=== PATIENT | female | born 1965 | race African-American/Black ===

== ENCOUNTER 2017-05-05 17:58 | Emergency (ER) | payer OTHER ==
[2017-05-05] MEDS ORDERED: hydrALAZINE 20 MG/ML VIAL ONE (19:27)
[2017-05-05] MEDS ORDERED: Metoclopramide HCl 10 MG/2 ML VIAL ONE (19:27)
--- NOTE | 2017-05-05 20:06 | CT ---
CT BRAIN WITHOUT CONTRAST: History: Headache. Comparison: MRI brain, 08-02-13 FINDINGS: No acute infarct or hemorrhage. No midline shift or mass effect. Ventricular size or mass effect. Ve ntricular size and extraaxial spaces are normal. Paranasal sinuses and mastoids are clear. IMPRESSION: No acute intracranial abnormality. POS: [facility]
[2017-05-05] MEDS ORDERED: Magnesium Sulfate 2 GM/NS 0.9% 50 ML BAG ONE (20:46)
[2017-05-05] MEDS ORDERED: Acetaminophen 500 MG TAB ONE (20:47)
[2017-05-05] MEDS ORDERED: diphenhydrAMINE 50 MG/ML VIAL ONE (20:47)
== END 2017-05-05 21:45 | disposition home or self-care (01) ==
LOC: SCSER 17:58
DX: R51 Headache (principal); I12.0 Hypertensive chronic kidney disease with stage 5 chronic kidney disease or end stage renal disease; E11.22 Type 2 diabetes mellitus with diabetic chronic kidney disease; N18.6 End stage renal disease; Z99.2 Dependence on renal dialysis; Z87.891 Personal history of nicotine dependence; Z79.899 Other long term (current) drug therapy
CPT/HCPCS: 70450; 85652; 96365; 96367; 96375; J0360; J1200; J2765; J3475

== ENCOUNTER 2017-05-14 16:18 | Outpatient (CLI) | payer OTHER ==
--- NOTE | 2017-05-14 16:50 | RAD ---
CHEST TWO VIEWS: 05/14/17 HISTORY: Cough. COMPARISON: 01/18/15. FINDINGS: Cardiac silhouette and pulmonary vasculature are unremarkable. Mediastinum is midline. There is no co nfluent air space consolidation, pneumothorax, or pleural fluid apparent. IMPRESSION: No active cardiopulmonary abnormalities are demonstrated. POS: [facility]
== END 2017-05-14 16:19 | disposition home or self-care (01) ==
LOC: RAD 16:18
PROVIDERS: ATTEND Family Medicine
DX: R05 Cough (principal)
CPT/HCPCS: 71046

== ENCOUNTER 2017-05-15 17:19 | Inpatient (IN) | payer OTHER ==
[2017-05-15 18:08] VITALS: BMI 32.5
[2017-05-15 18:53] LABS: Anion Gap 12 mmol/L (10-20); BUN (Urea Nitrogen) 47 mg/dL (9.8-20.1); Calc. Creatinine Clearance 21 mL/min (70-130); Calcium 8.7 mg/dL (7.8-10.44); Carbon Dioxide 28 mmol/L (22-29); Chloride 102 mmol/L (98-107); Estimated GFR-MDRD 12; Glucose 97 mg/dL (70-105); Magnesium 2.4 mg/dL (1.6-2.6); Phosphorus 3.6 mg/dL (2.3-4.7); Potassium 3.4 mmol/L (3.5-5.1); Sodium 139 mmol/L (136-145)
--- NOTE | 2017-05-15 19:46 | PDOC.FPRHP ---
- History of Present Illness Chief Complaint: increased creatinine History of Present Illness: 51 yo female with a pmhx of diabetes, type 2, htn, and hld presents as a direct admit from clinic with an increased cr level over the past 48 hours. She had a creatinine of 4.04 in clinic initially, and yesterday in the hospital when she she had her bmp rechecked, it had bumped to 4.8. Prior to checking it in clinic , her creatinine usually sits in the 3.6 range. She does endorse DUENAS, that is worsening, and some shortness of breath at night. She endorses mild lower extremity swelling. She also endorses a 7 pound weight gain over the past week. She denies congestion, fever, and n/v/d. - Allergies/Adverse Reactions Allergies Allergy/AdvReac Type Severity Reaction Status Date / Time codeine Allergy Intermediate Verified 05/15/17 18:10 - Home Medications Medication Instructions Recorded Confirmed Type Furosemide [Lasix] 20 mg PO DAILY 10/22/12 05/15/17 History Gabapentin 100 mg PO HS PRN 12/08/12 05/15/17 History Bisoprolol Fumarate/HCTZ 1 tablet PO DAILY 10/18/13 05/15/17 History - History PMHx:Type 2 diabetes, HTN, HLD, CKD, stage 5, PAD, Peripheral Neuropathy PSHx: AV fistula creation FHx: diabetes, mom-heart disease Social:former smoker (04/2016); pt has children - Review of Systems General: reports: weight/appetite/sleep changes (7 pound weight gain). denies: fever/chills Eyes: denies: eye pain, vision changes ENT: denies: nasal congestion, rhinorrhea Respiratory: reports: cough (nonproductive, dry), shortness of breath (with exertion, lying flat). denies: congestion Cardiovascular: reports: edema (bilateral lower extremities), paroxysmal nocturnal dyspnea, orthopnea. denies: chest pain, palpitation Gastrointestinal: denies: nausea, vomiting, diarrhea, constipation, abdominal pain Genitourinary: denies: incontinence, dysuria Skin: denies: rashes, lesions Musculoskeletal: denies: pain, tenderness Neurological: denies: numbness, syncope Psychological: denies: anxiety, depression - Vital signs BP: 169/79 HR: 71 RR: 18 Tmax: 98 Pox: 96% on RA Wt: 92kg - Physical Exam Constitutional: NAD, awake, alert and oriented, well developed HEENT: normocephalic and atraumatic, PERRLA, grossly normal vision, MMM Neck: supple, trachea midline, no LAD, no JVD, no thyromegaly Heart: RRR, other (trace edema bilateral lower extremities) -Heart: 2/6 systolic ejection murmur Lungs: CTAB, no respiratory distress, good air movement, no wheezing, no retractions Abdomen: soft, non-tender, bowel sounds present, no masses/distention Musculoskeletal: normal structure Neurological: no focal deficit Skin: no rash/lesions, capillary refill <2 seconds Heme/Lymphatic: no unusual bruising or bleeding, no purpura Psychiatric: normal mood and affect, good judgment and insight FMR H&P: Results - Labs Result Diagrams: 05/15/17 18:25 Lab results: Sodium 139 mmol/L (136-145) 05/15/17 18:25 Potassium 3.4 mmol/L (3.5-5.1) L 05/15/17 18:25 Chloride 102 mmol/L (98-107) 05/15/17 18:25 Carbon Dioxide 28 mmol/L (22-29) 05/15/17 18:25 BUN 47 mg/dL (9.8-20.1) H 05/15/17 18:25 Creatinine 4.58 mg/dL (0.6-1.1) H 05/15/17 18:25 Glucose 97 mg/dL (70-105) 05/15/17 18:25 Calcium 8.7 mg/dL (7.8-10.44) 05/15/17 18:25 - Radiology Interpretation Chest x-ray Status: image reviewed by me, report reviewed by me Additional comment: no acute cardiopulmonary process FMR H&P: A/P - Problem List (1) NATALIA (acute kidney injury) Current Visit: Yes Status: Acute Code(s): N17.9 - ACUTE KIDNEY FAILURE, UNSPECIFIED (2) CKD (chronic kidney disease) stage 5, GFR less than 15 ml/min Current Visit: Yes Status: Acute Code(s): N18.5 - CHRONIC KIDNEY DISEASE, STAGE 5 (3) HTN (hypertension) Current Visit: Yes Status: Acute Code(s): I10 - ESSENTIAL (PRIMARY) HYPERTENSION (4) HLD (hyperlipidemia) Current Visit: Yes Status: Acute Code(s): E78.5 - HYPERLIPIDEMIA, UNSPECIFIED (5) Diabetes type 2, controlled Current Visit: Yes Status: Acute Code(s): E11.9 - TYPE 2 DIABETES MELLITUS WITHOUT COMPLICATIONS - Plan 51 yo f with pmhx of diabetes, type 2, htn, hld presents with an increase in creatinine over the past 48 hours, admitted for NATALIA on CKD, stage 5. 1.)NATALIA on CKD, stage 5: BUN/Cr~10 which suggests an intrinsic cause; pt denies recent antibiotic or chronic nsaid use; nevertheless, we will avoid nephrotoxic drugs d/t her recent increase in creatinine. We ordered a urine creatinine and urea, since she is on lasix, to further evaluate and ordered Hep C, HIV, RPR to further assess for intrinsic kidney causes, since she has a pmhx of syphilis infection in high school, treated. We also ordered a renal ultrasound to rule out obstruction causes. There was some initial concern for volume overload, potentially CHF as a prerenal cause. We ordered an echo to further evaluate. We will monitor pt's I/O's and record daily weights. We also heard a systolic murmur on exam. She also has trace edema in her bilateral lower extremities and a 7 pound weight gain in the past week; however, her BNP was normal and chest xray was unremarkable. We will follow-up on the echo results and we will recheck a BMP in the am to assess her BUN and Cr again. We will consult her demolition expert, Dr. Roberts as well. 2.)Type 2 Diabetes: Controlled. Recent Hba1c was 6.3; we will place her on SSI and do ACHS accuchecks. 3.)HTN: controlled. We will restart her bb and hctz. 4.)HLD: controlled. We will change her to crestor, as the lipitor was causing GI upset. FMR H&P: Upper Level - Plan Date/Time: 05/15/171929 Teodora Benitez, PGY3, have evaluated this patient and agree with findings/plan as outlined by physician/internist resident. Pertinent changes/additions are listed here. This is a 51 yo AAF w/ PMH CKDIV with Dr. Roberts as demolition expert, DM2, HLD, HTN , PAD, Hx of syphillis tx in teenage years, who was sent over from clinic for NATALIA. Her Cr baseline is 3.7 and has increased to 4.8. She states that over the past week she has had a 7 pound weight gain,and has progressively noticed SOB when she walks up stairs and PND. She has had intermittent LE swelling and abdominal swelling and a dry cough which is worse at night, muscle cramps. Last ECHO was over 2 years ago. Denies any fevers,chills, congestion,N/V. PE: Gen:AOx4, in no acute distress HEENT: No PND, cervical lymphadenopathy, thyroidmegaly. CV: RRR. + 2/6 Systolic murmur. Resp: Rale RLL, otherwise CTA. No wheezing. Abdomen: Non-tender. Mildly distended. No rebound, no guarding Ext: Trace edema LE bilaterally. Pedal Pulses +2 LE bilaterally A/P: 1) NATALIA on CKD4 - Possibly due to volume overload. Will check BNP and ECHO, monitor I&O, daily weights, Lasix. We will repeat BMP, Urine Urea and Creatinine , UA, and Culture if abnormal. Avoid nephrotoxic medication. Consult Dr. Roberts in am. Renal US. 2) DM2 - patient just stopped her Januvia 1 week ago. Last HgA1c 05/2017 was 6.3. We will do Accuchecks QACHS and Mild ISS and consider adding medication depending on her BG. 3) Hx of syphilis - s/p treatment. Repeat titers to ensure still treated. Will check HIV, RPR and HepC as patient at high risk. 4) Increased weight gain - Possible CHF. F/u with BNP, ECHO. Lasix. Repeat CXR. 5) HTN - Continue home medications 6) HLD - Continue home medications Attending Addendum - Attending Addendum Date/Time: 05/15/17 [id number] I personally evaluated the patient and discussed the management with Dr. Gilman I agree with the History, Examination, Assessment and Plan documented above with any addition or exceptions noted below- Briefly this is a 51 year old female with h/o DM, HTN, PVD, HLD and CKD stage 4 who was seen in clinic yesterday for cough x 6 weeks. Also complained of weight gain and edema. Had been seen in ER 10 days previously for VELIZ which resolved but was noted to have elevated Cr above her baseline of 3.7. Patient sent for CXR and repeat labs to further evaluate symptoms. Lab returned today with Cr now = 4.8. Patient sent to hospital for further evaluation of rapid escalation of worsening renal function. PMH/PSH/Meds/ All/SH reviewed and agree with resident's documentation. PE: Afebrile VSS. Lungs- faint crackles in bases. CV- RRR, 2/6 systolic murmur Abd soft; nt/nd Exy- no edema Labs: BNP = 13; BUN/Cr= 47/4.58; U/A 1+ protein; UDS negative CXR 05/14- negative A/P: 1) NATALIA with CKD- will gently hydrate overnight and hold lasix to see if there may be a pre-renal component. Avoid nephrotoxic meds; Consult nephrology ( Dr. Roberts); renal USG c/w intrinsic renal disease 2) DM- stopped januvia; last HgBA1c= 6.3%' will monitor accuchecks and use SSI 3) HTN- continue home meds except lasix; labetolol prn
[2017-05-15] MEDS: Acetaminophen 500 MG TAB PO PRN (21:04)
[2017-05-15] MEDS: Rosuvastatin 20 MG TAB PO SCH (21:04)
[2017-05-15 21:25] LABS: Bilirubin Negative (Negative); Blood, Urine Trace (Negative); Clarity CLEAR (Clear); Glucose, Urine (Dipstick) 100 mg/dL (Negative); Leukocyte Negative (Negative); Nitrite Negative (Negative); Protein, Urine (Dipstick) 100 mg/dL (Neg-Trace); Specific Gravity, Urine 1.006 (1.002-1.036); Urobilinogen 0.2 mg/dL (0.2-1.0)
[2017-05-15 21:27] LABS: Bacteria/HPF None Seen HPF (None Seen); Hyaline Casts/LPF 0-3 HYALINE CAST LPF (0-3 Hyaline); RBC/HPF 0-3 HPF (0-3); Squamous Epithelial None Seen HPF (0-3); WBC/HPF None Seen HPF (0-3)
[2017-05-15] MEDS: Sodium Chloride 0.9% 1,000 ML IV SCH (22:05)
--- NOTE | 2017-05-15 22:13 | ULT ---
RENAL ULTRASOUND: 05/15/17 HISTORY: Acute kidney insufficiency. Right kidney measures 8.7 cm in length. Left kidney measures 8.1 cm in length. Both kidneys exhibit i ncreased cortical echogenicity consistent with medical renal disease. There is no hydronephrosis. Mul tiple small cysts are seen in the left kidney with largest measuring approximately 1.0 cm. There is mild right hydronephrosis. The bladder is distended and appears unremarkable. Bilateral uret eral jets are demonstrated. IMPRESSION: 1. Increased cortical echogenicity consistent with medical renal disease. 2. Small left renal cyst. 3. Mild right hydronephrosis. POS: [facility]
[2017-05-15 23:05] LABS: Amphetamine Not Detected (NotDetected); Barbiturates Screen Not Detected (NotDetected); Benzodiazepine Screen Not Detected (NotDetected); Cocaine Metabolite Screen Not Detected (NotDetected); Medtox Control Line Valid? VALID (VALID); Medtox Reader # READER 1; Methadone Not Detected (NotDetected); Methamphetamine Not Detected (NotDetected); Opiate Screen Not Detected (NotDetected); Oxycodone Screen Not Detected (NotDetected); Phencyclidine (PCP) Not Detected (NotDetected); THC/Cannabinoid Screen Not Detected (NotDetected); Tricyclic Screen Not Detected (NotDetected)
[2017-05-15] MEDS: guaiFENesin 200 MG TAB PO PRN (23:15)
[2017-05-15 23:30] LABS: Syphilis Antibody Index 15.45 S/CO (<1.00 Non-Reactive)
[2017-05-15 23:32] LABS: Syphilis Antibody INDETERMINATE (Nonreactive)
[2017-05-16 01:24] LABS: Creatinine, Urine 26.35 mg/dL (47-110)
[2017-05-16 02:20] LABS: Hep C IgG Ab Non-Reactive (NonReactive); Hep C Index 0.19 S/CO (0-0.79)
[2017-05-16 02:21] LABS: HIV (1/2) Antibody/Antigen Non-Reactive (NonReactive); HIV 1/2 INDEX 0.18 S/CO (<1.00)
[2017-05-16] MEDS: Sodium Chloride 0.9% 1,000 ML IV SCH (05:54)
[2017-05-16 06:03] LABS: Anion Gap 11 mmol/L (10-20); BUN (Urea Nitrogen) 41 mg/dL (9.8-20.1); Calc. Creatinine Clearance 22 mL/min (70-130); Calcium 8.5 mg/dL (7.8-10.44); Carbon Dioxide 25 mmol/L (22-29); Chloride 107 mmol/L (98-107); Estimated GFR-MDRD 13; Glucose 104 mg/dL (70-105); Potassium 3.3 mmol/L (3.5-5.1); Sodium 140 mmol/L (136-145)
[2017-05-16] MEDS ORDERED: Dextrose 50% Abboject 50 ML SYRINGE SLOW IVP PRN (06:19)
[2017-05-16] MEDS ORDERED: HumaLOG 300 UNITS/3 ML VIAL SC PRN (06:19)
[2017-05-16] MEDS ORDERED: Dextrose 5% in Water 1,000 ML IV PRN (06:19)
--- NOTE | 2017-05-16 06:29 | PDOC.FM ---
- Subjective Subjective: Pt complains of cough that began several days ago. Reports taking Guaifenesin without improvement and it developed after a viral URI earlier in the week. Drinking water and making urine. Renal US performed. - Objective Vital Signs & Weight: Vital Signs (12 hours) Temp Pulse Resp BP Pulse Ox 05/16/17 00:00 98 F 65 22 H 157/88 H 100 05/15/17 20:00 98 F 65 22 H 157/86 H 99 05/15/17 19:30 98.1 F 76 18 134/71 99 Weight Weight 92.941 kg Result Diagrams: 05/16/17 05:15 <Javier Deluna - Last Filed: 05/16/17 06:27> - Objective Vital Signs & Weight: Vital Signs (12 hours) Temp Pulse Resp BP Pulse Ox 05/16/17 07:15 97.7 F 74 16 119/69 96 05/16/17 04:10 97.9 F 74 22 H 120/71 97 05/16/17 00:00 98 F 65 22 H 157/88 H 100 Weight Weight 92.941 kg I&O: 05/15/17 05/16/17 05/17/17 06:59 06:59 06:59 Intake Total 1695 Output Total 2200 Balance -505 Result Diagrams: 05/16/17 05:15 <Charly Ruiz - Last Filed: 05/16/17 10:11> Phys Exam - Physical Examination HEENT: PERRLA, moist MMs Neck: no nodes, no JVD Respiratory: no wheezing, no rales, no rhonchi decreased breath soungs diffusely Cardiovascular: RRR 2/6 systolic murmur present mostly on T sternum 2nd ICS Gastrointestinal: soft, non-tender, no distention Musculoskeletal: no edema, pulses present Neurological: non-focal, normal sensation Lymphatic: no nodes Psychiatric: normal affect, A&O x 3 Skin: no rash, normal turgor <Javier Deluna - Last Filed: 05/16/17 06:27> Dx/Plan (1) NATALIA (acute kidney injury) Code(s): N17.9 - ACUTE KIDNEY FAILURE, UNSPECIFIED Status: Acute (2) CKD (chronic kidney disease) stage 5, GFR less than 15 ml/min Code(s): N18.5 - CHRONIC KIDNEY DISEASE, STAGE 5 Status: Chronic (3) Post-viral cough syndrome Code(s): R05 - COUGH Status: Acute (4) HLD (hyperlipidemia) Code(s): E78.5 - HYPERLIPIDEMIA, UNSPECIFIED Status: Chronic (5) Diabetes type 2, controlled Code(s): E11.9 - TYPE 2 DIABETES MELLITUS WITHOUT COMPLICATIONS Status: Chronic QualifierTitle: Diabetes mellitus moth exterminator insulin use: without moth exterminator use Diabetes mellitus complication detail: with chronic kidney disease (6) HTN (hypertension) Code(s): I10 - ESSENTIAL (PRIMARY) HYPERTENSION Status: Chronic - Plan Plan: 51 yo f with DM2, htn, hld presents with an increase in creatinine over the past 48 hours, admitted for NATALIA on CKD, stage 5. 1.)NATALIA on CKD, stage V: - Cr Slightly improved overnight 4.58--> 4.39. Urine creatinine decreased. - Hep C, HIV, RPR all negative. - Renal ultrasound shows mild R hydronephrosis which may be contributing ro overall problem. T - ECHO Pending for 7lb weight gain in 1w, mnurmur and mild LE edema - Monitor pt's I/O's and record daily weights. Will back down on fluids later today. - Consult her air twist operator, Dr. Roberts as well. 2.)Type 2 Diabetes: Controlled. Recent Hba1c was 6.3; we will place her on SSI and do ACHS accuchecks. 3.)HTN: controlled. We will restart her bb and hctz. 4.)HLD: controlled. Crestor, as the lipitor was causing GI upset. 5) Hypokalemia: 3.3, will gently replete <Javier Deluna - Last Filed: 05/16/17 06:27> Attending Addendum - Attending Addendum Date/Time: 05/16/17 1010 I personally evaluated the patient and discussed the management with Dr. Deluna. I agree with and the History, Examination, Assessment and Plan documented above with any addition or exceptions noted below. No f/c. No cp/palps. Await nephro consultation. Do not think mild hydro contributing. Extensive medical renal disease on imaging when I reviewed images personally, and hydro unimpressive. <Charly Ruiz - Last Filed: 05/16/17 10:11>
[2017-05-16] MEDS ORDERED: Furosemide 20 MG TAB PO SCH (09:00)
[2017-05-16] MEDS: Bisoprolol Fumarate/HCTZ 10 mg/6.25 mg Tablet PO SCH (09:30)
[2017-05-16] MEDS: guaiFENesin 200 MG TAB PO PRN ×3 (09:30→21:25)
[2017-05-16] MEDS ORDERED: Clopidogrel Bisulfate 75 MG TAB ONE (13:04)
[2017-05-16] MEDS: Rosuvastatin 20 MG TAB PO SCH (20:09)
[2017-05-16] MEDS: Acetaminophen 500 MG TAB PO PRN (23:46)
[2017-05-17 05:20] LABS: Anion Gap 15 mmol/L (10-20); BUN (Urea Nitrogen) 35 mg/dL (9.8-20.1); Calc. Creatinine Clearance 23 mL/min (70-130); Calcium 8.5 mg/dL (7.8-10.44); Carbon Dioxide 20 mmol/L (22-29); Chloride 107 mmol/L (98-107); Estimated GFR-MDRD 14; Glucose 118 mg/dL (70-105); Potassium 3.5 mmol/L (3.5-5.1); Sodium 138 mmol/L (136-145)
--- NOTE | 2017-05-17 06:04 | PDOC.FM ---
- Subjective Subjective: Pt states she feels well. cough improved. Dr Roberts saw pt and cleared for discharge. - Objective Vital Signs & Weight: Vital Signs (12 hours) Temp Pulse Resp BP Pulse Ox 05/16/17 21:25 98.7 F 74 18 99 05/16/17 20:00 98.7 F 74 18 150/87 H 99 Weight Weight 92.941 kg I&O: 05/15/17 05/16/17 05/17/17 06:59 06:59 06:59 Intake Total 28564 Output Total 3900 Balance 6739 Result Diagrams: 05/17/17 04:23 <Javier Deluna - Last Filed: 05/17/17 10:38> - Objective Vital Signs & Weight: Vital Signs (12 hours) Temp Pulse Resp BP Pulse Ox 05/17/17 08:00 98.1 F 59 L 16 05/17/17 07:30 98.1 F 59 L 16 144/83 H 96 Weight Weight 92.646 kg I&O: 05/16/17 05/17/17 05/18/17 06:59 06:59 06:59 Intake Total 31993 Output Total 3900 Balance 6739 Result Diagrams: 05/17/17 04:23 <Hilario Patricio - Last Filed: 05/17/17 11:49> Phys Exam - Physical Examination HEENT: PERRLA, moist MMs Neck: no nodes, no JVD Respiratory: no wheezing, no rales, no rhonchi Cardiovascular: RRR, no significant murmur, no rub Gastrointestinal: soft, non-tender, no distention Musculoskeletal: no edema, pulses present Neurological: non-focal, normal sensation Psychiatric: normal affect, A&O x 3 Skin: no rash, normal turgor <Javier Deluna - Last Filed: 05/17/17 10:38> Dx/Plan (1) NATALIA (acute kidney injury) Code(s): N17.9 - ACUTE KIDNEY FAILURE, UNSPECIFIED Status: Acute (2) CKD (chronic kidney disease) stage 5, GFR less than 15 ml/min Code(s): N18.5 - CHRONIC KIDNEY DISEASE, STAGE 5 Status: Chronic (3) Post-viral cough syndrome Code(s): R05 - COUGH Status: Acute (4) HLD (hyperlipidemia) Code(s): E78.5 - HYPERLIPIDEMIA, UNSPECIFIED Status: Chronic (5) Diabetes type 2, controlled Code(s): E11.9 - TYPE 2 DIABETES MELLITUS WITHOUT COMPLICATIONS Status: Chronic QualifierTitle: Diabetes mellitus kapok machine operator insulin use: without kapok machine operator use Diabetes mellitus complication detail: with chronic kidney disease (6) HTN (hypertension) Code(s): I10 - ESSENTIAL (PRIMARY) HYPERTENSION Status: Chronic - Plan Plan: 51 yo f with CKD5 presents with an increase in creatinine over the past 48 hours , admitted for NATALIA on CKD. 1.)NATALIA on CKD, stage V: Dr Roberts evaluated patient and cleared for discharge with f/u in 2-3 weeks. - Cr improving 4.58--> 4.39-->4.1. Urine creatinine decreased. - Hep C, HIV, RPR all negative. - Renal ultrasound shows medical renal disease b/l- EHO shows EF 45%. 2.)Type 2 Diabetes: Controlled. Recent Hba1c was 6.3; we will place her on SSI and do ACHS accuchecks. Recently stopped Januvia. consider alt meds upon f/u 3.)HTN: controlled. continue bb and hctz. 4.)HLD: Crestor, as the lipitor was causing GI upset. 5) Hypokalemia: resolved. replete as needed 6) Cough: Likely post viral, but has reportedly been present for 6w. CXR negative. Rosanna KOCH <Javier Deluna - Last Filed: 05/17/17 10:38> Attending Addendum - Attending Addendum Date/Time: 05/17/17 2116 I personally evaluated the patient and discussed the management with Dr. Deluna I agree with the History, Examination, Assessment and Plan documented above with any addition or exceptions noted below. <Hilario Patricio - Last Filed: 05/17/17 11:49>
[2017-05-17] MEDS ORDERED: Benzonatate 100 MG CAP PO PRN (06:09)
[2017-05-17] MEDS: Bisoprolol Fumarate/HCTZ 10 mg/6.25 mg Tablet PO SCH (08:17)
[2017-05-17 08:39] VITALS: BP 144/83; TEMP 98.1
--- NOTE | 2017-05-17 13:58 | DIS-2 ---
DATE OF ADMISSION: 05/15/2017 DATE OF DISCHARGE: 05/17/2017 RESIDENT: Javier Deluna D.O. ADMITTING ATTENDING: Dr. Joelle Campa. DISCHARGE ATTENDING: Dr. Hilario Patricio. CONSULTATIONS: This will be Dr. Roberts, Nephrology. PROCEDURES: None. ADMISSION DIAGNOSIS: Acute kidney on chronic kidney injury. SECONDARY DIAGNOSES: Hypertension; hyperlipidemia; diabetes, type 2; post-viral cough syndrome. DISCHARGE MEDICATIONS: Rosuvastatin 20 mg p.o. nightly and Lasix 40 mg p.o. daily. HOSPITAL COURSE: The patient was seen in clinic earlier in the week and found to have an elevated cr eatinine of 4.8 when her baseline is 3.6. She was admitted to the hospital for acute kidney injury a nd Nephrology consultation. She does have stage 5 chronic kidney disease. Her renal function did im prove with the most recent creatinine of 4.1. Dr. Roberts did see the patient and is aware of her pro gressing kidney disease. He has arranged followup in 2-3 weeks at his outpatient clinic, but no dial ysis or dialysis access at this time. Reportedly, if her renal function decreases another 5%, she wi ll be a candidate for renal transplant through Dr. Roberts. She also suffered from a cough during her hospital stay with a negative x-ray. She will follow up with Dr. Hernandez at [facility] and follow up with Dr. Roberts, Nephrology. DISPOSITION: Stable. DISCHARGE INSTRUCTIONS: 1. Location: Home. 2. Diet: Renal. 3. Activity: As tolerated. 4. Followup: As mentioned above.
== END 2017-05-17 11:41 | disposition home or self-care (01) | DRG 683 ==
LOC: T4-B 17:19
PROVIDERS: ADMIT Family Medicine; ATTEND Family Medicine
DX: N17.9 Acute kidney failure, unspecified (principal); I12.0 Hypertensive chronic kidney disease with stage 5 chronic kidney disease or end stage renal disease; E11.22 Type 2 diabetes mellitus with diabetic chronic kidney disease; N18.5 Chronic kidney disease, stage 5; E78.5 Hyperlipidemia, unspecified; Z87.891 Personal history of nicotine dependence; J44.9 Chronic obstructive pulmonary disease, unspecified; K21.9 Gastro-esophageal reflux disease without esophagitis; M10.9 Gout, unspecified; R05 Cough; E87.6 Hypokalemia
CPT/HCPCS: 36415; 36416; 76770; 80048; 80306; 81001; 82570; 83735; 84100; 84540; 86593; 86780; 86803; 87389; 93306; A4216

== ENCOUNTER 2017-07-11 10:21 | Observation (INO) | payer OTHER ==
[2017-07-11 11:29] LABS: ALT (SGPT) 19 U/L (8-55); AST (SGOT) 15 U/L (5-34); Albumin 4.1 g/dL (3.5-5.0); Alkaline Phosphatase 109 U/L (40-150); Anion Gap 13 mmol/L (10-20); BUN (Urea Nitrogen) 54 mg/dL (9.8-20.1); Bilirubin, Total 0.3 mg/dL (0.2-1.2); Calc. Creatinine Clearance 0 mL/min (70-130); Calcium 9.2 mg/dL (7.8-10.44); Carbon Dioxide 24 mmol/L (22-29); Chloride 105 mmol/L (98-107); Estimated GFR-MDRD 10; Glucose 169 mg/dL (70-105); Potassium 3.4 mmol/L (3.5-5.1); Protein, Total 8.1 g/dL (6.0-8.3); Sodium 139 mmol/L (136-145)
[2017-07-11 11:34] LABS: CKMB 1.6 ng/mL (0-6.6); Troponin I Less than 0.010 ng/mL (< 0.028)
--- NOTE | 2017-07-11 11:39 | RAD ---
PORTABLE CHEST: HISTORY: Chest pain. COMPARISON: 10/11/15 study. FINDINGS: Heart size and mediastinum are within normal limits. The lungs are clear of infiltrates. No signifi cant bony findings. IMPRESSION: No active intrathoracic disease. POS: [facility]
[2017-07-11 12:20] LABS: #Basophils 0.1 thou/uL (0.0-0.2); #Eosinphils 0.4 thou/uL (0.0-0.7); #Lymphocytes 2.1 thou/uL (1.20-3.40); #Monocytes 0.4 thou/uL (0.11-0.59); #Neutrophils 5.7 thou/uL (1.40-6.50); %Eosinophils 4.9 % (0.0-10.0); %Lymphocytes 24.2 % (21.0-51.0); %Monocytes 4.5 % (0.0-10.0); %Neutrophils 65.4 % (42.0-75.0); Hemoglobin 13.3 g/dL (12.0-16.0); Mean Corpuscular HGB CONC 33.3 g/dL (32.0-36.0); Mean Corpuscular Hemoglobin 27.3 pg (27.0-31.0); Mean Corpuscular Volume 82.1 fl (81.0-99.0); Mean Platelet Volume 9.9 fL (7.4-10.4); Platelet Count 216 thou/uL (130-400); RBC Distribution Width 13.9 % (11.5-14.5); Red Blood Cell (RBC) Count 4.86 mill/uL (4.20-5.40); White Blood Cell (WBC) Count 8.7 thou/uL (4.8-10.8)
[2017-07-11 12:36] LABS: Lipase 121 U/L (8-78)
[2017-07-11 12:37] LABS: CK (CPK) 302 U/L (29-168)
--- NOTE | 2017-07-11 12:56 | PDOC.FPRHP ---
- History of Present Illness Chief Complaint: Chest Pain History of Present Illness: 51 yo female presents with 1 week history of intermittent chest pain. She notes that her pains have been occurring for a longer period of time than that, but over the last week it has increased in frequency and severity. She states the pain is in the right side of her chest and moves to her right arm and right jaw. She states she is always nauseas and so she can't determine if it is worse at this time or not. She denies vision changes, sweating episodes, fever, or chills. She states the pain can occur at rest and when she is exerting herself ( usually walking). She states the pain usually goes away on its own, but other the last week it has lasted longer and longer and has come back more frequently. She has a lot of concern over her CKD stage 5 and doesn't want that to get any worse. She has no other complaints today. ED Course: 324 mg ASA - Allergies/Adverse Reactions Allergies Allergy/AdvReac Type Severity Reaction Status Date / Time codeine Allergy Intermediate Verified 05/15/17 18:10 - Home Medications Medication Instructions Recorded Confirmed Type Furosemide [Lasix] 20 mg PO DAILY 10/22/12 07/11/17 History Gabapentin 300 mg PO DAILY PRN 12/08/12 07/11/17 History Bisoprolol Fumarate/HCTZ 1 tablet PO DAILY 10/18/13 07/11/17 History Rosuvastatin [Crestor] 20 mg PO HS #30 tab 05/17/17 07/11/17 Rx sitaGLIPtin Phosphate [Januvia] 25 mg PO DAILY 07/11/17 07/11/17 History - History PMHx: CKD Stage 5, DM2, HLD, HTN, PAD, CAD PSHx: , Left arm shunt non-functional FHx: Mother and Maternal Grandmother heart disease Social: Patient denies drug or alcohol use. She is a former smker, but quit 5 years ago. - Review of Systems General: denies: fever/chills ENT: denies: nasal congestion, rhinorrhea Respiratory: denies: cough, congestion, shortness of breath Cardiovascular: reports: chest pain. denies: palpitation, edema Gastrointestinal: reports: nausea. denies: vomiting, diarrhea, constipation Genitourinary: denies: incontinence Skin: denies: rashes, lesions Musculoskeletal: denies: pain, tenderness Neurological: denies: numbness, syncope Psychological: denies: anxiety, depression - Vital signs BP: 11/82 HR: 65 RR: 16 Tmax: 98.1 Pox: 94% on RmAir Wt: 92 kg - Physical Exam Constitutional: NAD, awake, alert and oriented HEENT: normocephalic and atraumatic, grossly normal vision, grossly normal hearing, normal nasal mucosa Neck: supple, trachea midline Chest: no-tender to palpation Heart: RRR, normal S1/S2, no murmurs/rubs/gallops, pulses present, no edema Lungs: CTAB Abdomen: soft, non-tender, bowel sounds present, no masses/distention Musculoskeletal: normal structure, normal tone Neurological: no focal deficit, CN II-XII intact Skin: no rash/lesions, good turgor Heme/Lymphatic: no unusual bruising or bleeding Psychiatric: normal mood and affect, good judgment and insight, intact recent and remote memory FMR H&P: Results - Labs Result Diagrams: 07/11/17 10:56 07/11/17 10:56 Lab results: WBC 8.7 thou/uL (4.8-10.8) 07/11/17 10:56 Hgb 13.3 g/dL (12.0-16.0) 07/11/17 10:56 Hct 39.9 % (36.0-47.0) 07/11/17 10:56 MCV 82.1 fl (81.0-99.0) 07/11/17 10:56 Plt Count 216 thou/uL (130-400) 07/11/17 10:56 Neutrophils % 65.4 % (42.0-75.0) 07/11/17 10:56 Sodium 139 mmol/L (136-145) 07/11/17 10:56 Potassium 3.4 mmol/L (3.5-5.1) L 07/11/17 10:56 Chloride 105 mmol/L (98-107) 07/11/17 10:56 Carbon Dioxide 24 mmol/L (22-29) 07/11/17 10:56 BUN 54 mg/dL (9.8-20.1) H 07/11/17 10:56 Creatinine 5.63 mg/dL (0.6-1.1) H 07/11/17 10:56 Glucose 169 mg/dL (70-105) H 07/11/17 10:56 Calcium 9.2 mg/dL (7.8-10.44) 07/11/17 10:56 Total Bilirubin 0.3 mg/dL (0.2-1.2) 07/11/17 10:56 AST 15 U/L (5-34) 07/11/17 10:56 ALT 19 U/L (8-55) 07/11/17 10:56 Alkaline Phosphatase 109 U/L (40-150) 07/11/17 10:56 Creatine Kinase 302 U/L (29-168) H 07/11/17 10:56 CK-MB (CK-2) 1.6 ng/mL (0-6.6) 07/11/17 10:56 B-Natriuretic Peptide 19.0 pg/mL (0-100) 07/11/17 10:56 Serum Total Protein 8.1 g/dL (6.0-8.3) 07/11/17 10:56 Albumin 4.1 g/dL (3.5-5.0) 07/11/17 10:56 Lipase 121 U/L (8-78) H 07/11/17 10:56 - EKG Interpretation EK lead EKG shows normal sinus rhythm, Rate (beats per minute): 67, No other findings, NV interval [address] inversion V3-V6. - Radiology Interpretation Chest x-ray Status: report reviewed by me (No active intrathoracic disease) FMR H&P: A/P - Problem List (1) Unstable angina Current Visit: Yes Status: Acute (2) CKD (chronic kidney disease) stage 5, GFR less than 15 ml/min Current Visit: No Status: Chronic Code(s): N18.5 - CHRONIC KIDNEY DISEASE, STAGE 5 (3) Diabetes type 2, controlled Current Visit: No Status: Chronic Code(s): E11.9 - TYPE 2 DIABETES MELLITUS WITHOUT COMPLICATIONS Qualifiers: Diabetes mellitus local intermodal truck driver insulin use: without local intermodal truck driver use Diabetes mellitus complication detail: with chronic kidney disease (4) HLD (hyperlipidemia) Current Visit: No Status: Chronic Code(s): E78.5 - HYPERLIPIDEMIA, UNSPECIFIED (5) HTN (hypertension) Current Visit: No Status: Chronic Code(s): I10 - ESSENTIAL (PRIMARY) HYPERTENSION (6) Elevated CK Current Visit: Yes Status: Acute - Plan 1) Unstable angina: - Will start on therapeutic Heparin because of CKD - repeat EKG this afternoon - Trend troponins - HEART score = 6, - LOKESH risk score = 2-3. - Lipids elevated at PCP office earlier in spring. Will increase regimen - Continue aspirin - Hold BB tonight for likely stress test. 2) HTN: - Hold BB for stress test tomorrow - PRN BP control - monitor 3) DM2: - Accuchecks, SSI. - Will determine if patient is still on Januvia 4) PVD: - Continue aspirin - Increase Statin dose 5) CKD, stage 5 - IVF below maintenance - Monitor with BMP 6) Elevated CK - Trend - IVF CODE STATUS: FULL CODE Disposition: Stable, Will admit to Telemetry services and await stress results. FMR H&P: Upper Level - Pertinent history 51 yo F with PMH of DM2, HTN, CKDsIV, PVD presenting with chest pain. Pain is R sided in nature, with radiation to R jaw and down R arm. Has 10-20 min episodes of chest pressure that sometimes occur at rest and frequently also return with activity. HEART score = 6, LOKESH risk score = 2-3. Denies any SOB, dizziness, N/V with these episodes. Had negative stress test in 2014. ECHO in showed EF 45-50%, mildly depressed function overall. Family history notable for mother and maternal grandmother with heart disease. - Pertinent findings PE: T: 98.9 P: 67 BP: 141/88 RR: 17 96% Gen: [place] obese female in NAD HEENT: PERRL, EOMI, MMM, no lymphadenopathy or thyromegaly CV: RRR no murmurs, distal pulses intact Pulm: CTAB, no wheezes or rhonchi Abd: soft, NT/ND, BS present, no masses or distention Ext: no cyanosis or edema MSK: RODRIGUEZ well, no joint or muscle pain or swelling Neuro: CN 2-12 intact, normal sensation Psych: A&O x3, appropriate in conversation - Plan Date/Time: 07/11/17 1255 51 yo F here with chest pain 1) Unstable angina: Will admit to telemetry. Start on therapeutic lovenox, repeat EKG later this afternoon with next set of enzymes. Continue to trend cardiac enzymes. HEART score = 6, LOKESH risk score = 2-3. Lipids were within normal limits earlier this month at PCP's office. Continue ASA, statin. Hold BB tonight for likely stress test. 2) HTN: Continue BB, HCTZ. 3) DM2: Accuchecks, SSI. Unclear if she is still taking anything for this at home. 4) PVD: Continue ASA. I, [Portillo Barrrea], have evaluated this patient and agree with findings/plan as outlined by corporate strategy intern resident. Pertinent changes/additions are listed here. Attending Addendum - Attending Addendum Date/Time: 07/11/17 [id number] I personally evaluated the patient and discussed the management with Dr. Maharaj. I agree with the History, Examination, Assessment and Plan documented above with any addition or exceptions noted below. 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 Reports that during this time it has increased in intensity and has become more frequent. Describes the pain as R sided with radiation to jaw and R arm. Associated with nausea. Reports mostly onset at rest but sometimes with exertion. She does report chronic and worsening dyspnea with exertion. Her initial cardiac enzymes are negative, but her EKG is suggestive of some lateral ischemia. Creatinine is stable but shows estimated GFR of 10. Due to concern for suspected unstable angina, she will be started on therapeutic heparin, Nitro, ASA, O2 and morphine as needed for chest pain/ shortness of breath. Stress testing has been ordered, but Cardiology has also been consulted and will await their recommendations. Monitor on telemetry. If decision is made for heart cath, patient will need nephrology on board as the contrast load will likely push her towards need for renal replacement therapy. Mild IV fluids to help improve her creatinine somewhat.
[2017-07-11] MEDS ORDERED: Acetaminophen 325 MG TAB PO PRN ×2 (13:54→15:23)
[2017-07-11 14:17] VITALS: BMI 33.2
[2017-07-11 14:20] LABS: Troponin I Less than 0.010 ng/mL (< 0.028)
[2017-07-11] MEDS ORDERED: Gabapentin 100 MG CAP PO PRN (14:36)
[2017-07-11] MEDS ORDERED: Dextrose 5% in Water 1,000 ML IV PRN (15:23)
[2017-07-11] MEDS ORDERED: Nitroglycerin 0.4 MG TAB (25 Tab Bottle) PO PRN (15:23)
[2017-07-11] MEDS ORDERED: Heparin 25,000 units/D5W 500 ML IVPB SCH (15:23)
[2017-07-11] MEDS ORDERED: Insulin Regular 300 UNITS/3 ML VIAL SC PRN (15:23)
[2017-07-11] MEDS ORDERED: Dextrose 50% Abboject 50 ML SYRINGE SLOW IVP PRN (15:23)
[2017-07-11] MEDS ORDERED: hydrALAZINE 20 MG/ML VIAL SLOW IVP PRN (15:23)
[2017-07-11] MEDS ORDERED: Ondansetron ODT 4 MG TAB PO PRN (15:23)
[2017-07-11] MEDS ORDERED: Heparin 10,000 UNITS/ 10 ML VIAL SLOW IVP SCH (15:23)
[2017-07-11 15:56] LABS: Hemoglobin 12.9 g/dL (12.0-16.0); Platelet Count 218 thou/uL (130-400)
[2017-07-11] MEDS: Sodium Chloride 0.9% 1,000 ML IV SCH (17:55)
[2017-07-11 18:19] LABS: Troponin I Less than 0.010 ng/mL (< 0.028)
--- NOTE | 2017-07-11 19:16 | CON ---
DATE OF CONSULTATION: 07/11/2017 REASON FOR CONSULTATION: Chest pain. HISTORY OF PRESENT ILLNESS: Ms. Haider is a 51-year-old woman with history of diabetes and peripher al vascular disease and stage 5 renal failure, admitted with chest pain. Ms. Haider previously has been seen in the office by Dr. Champagne. She has undergone stress testing in evaluation of peripheral vascular disease. The patient studies will be outlined as below. She w as admitted to the hospital this occasion with central substernal pain and pain in the right side of her chest, going up into the right side of her jaw and neck, somewhat in the right arm. She is pain free currently. The pain is not exertional. PAST MEDICAL HISTORY: 1. Hypertension. 2. Renal insufficiency. She had renal failure after the delivery of her last child, the kidneys rec overed, but then they have been gradually getting worse in terms of the renal function. 3. Diabetes for several years. 4. Hypercholesterolemia. MEDICATIONS: Prior to admission: 1. Furosemide 20 mg a day. 2. Bisoprolol/HCT 10/6.25 a day. 3. Rosuvastatin 20 mg a day. 4. Januvia. REVIEW OF SYSTEMS: Constitutional: No significant weight gain or loss. Vision: No changes. Heari ng: No changes. Pulmonary: No cough or wheezing. Gastrointestinal: No nausea, vomiting, diarrhea . Skin: No rashes. Neurologic: No unilateral weakness or numbness. Psychiatric: No unusual depr ession or anxiety. Hematologic: No unusual bruising. Genitourinary: No burning with urination. ALLERGIES: CODEINE. PHYSICAL EXAMINATION: GENERAL: This is a pleasant woman in no distress. VITAL SIGNS: Blood pressure is 134/76, pulse 66 regular. HEENT: Sclerae nonicteric. Mouth mucous membranes moist. NECK: Supple, no lymphadenopathy. LUNGS: Clear, no wheezing, rales or rhonchi. CARDIAC: Normal S1, normal S2. There is no murmur, rub or gallop. ABDOMEN: Obese, nontender, no hepatosplenomegaly. EXTREMITIES: Warm, dry, no clubbing, cyanosis or edema. Peripheral pulses are diminished. I do fee l a femoral pulse on the left. She has a diminished, but palpable femoral pulse on the right. I do not feel pedal pulses. PERTINENT LABORATORY AND X-RAY FINDINGS: Troponin levels are negative. Creatinine 5.6. The estimat ed GFR is 10. Potassium is 3.4. Troponins negative. EKG sinus rhythm, probable left ventricular hypertrophy with repolarization changes. ASSESSMENT: 1. Chest pain, somewhat atypical for angina. 2. Peripheral vascular disease. 3. Hypertension. 4. Diabetes. 5. Hypercholesterolemia. Reviewing records in the office, Dr. Champagne did stress testing in 2014, which showed no ischemia. Echocardiogram revealed ejection fraction at that time 50%-55% and she had distal peripheral vascular disease. She said she had an arteriogram done indeed I does not have located that. Dr. Carreon [facility] She had balloon angioplasty with drug-coated balloon, the right common iliac and external iliac. PLAN: 1. Stress testing to be done. 2. Has developed recurrent claudication. We will need further evaluation. Dr. Carreon did do a ball oon dilatation of the peripheral vessels as outlined above in 11/2014.
[2017-07-11] MEDS ORDERED: Rosuvastatin 20 MG TAB PO SCH (21:00)
[2017-07-11] MEDS ORDERED: Atorvastatin Calcium 40 MG TAB PO SCH (21:00)
[2017-07-11] MEDS ORDERED: Heparin 5,000 UNITS/ML VIAL SC SCH (21:00)
[2017-07-11] MEDS ORDERED: Rosuvastatin 10 MG TAB PO SCH (21:00)
[2017-07-11] MEDS ORDERED: diphenhydrAMINE 25 MG CAP PO PRN (21:07)
[2017-07-12] MEDS: Sodium Chloride 0.9% 1,000 ML IV SCH ×2 (04:26→14:19)
--- NOTE | 2017-07-12 06:28 | PDOC.FM ---
- Subjective Subjective: Patient had a good night. She states chest pain resolved. She is willing and ready to have her Stress this morning. She states that she hasn't had any n/v/d , fevers, chills, or coughs. She is still concerned on her kidney function and that will be something to be followed as an outpatient. No other complaints this morning. - Objective Vital Signs & Weight: Vital Signs (12 hours) Temp Pulse Resp BP Pulse Ox 07/12/17 04:00 97.6 F 71 18 116/58 L 93 L 07/11/17 20:00 98.1 F 70 20 137/82 96 Weight Weight 93.349 kg I&O: 07/10/17 07/11/17 07/12/17 06:59 06:59 06:59 Intake Total 2058 Output Total 400 Balance 1658 Result Diagrams: 07/11/17 15:33 07/12/17 06:04 <Brijesh Maharaj - Last Filed: 07/12/17 07:38> - Objective Vital Signs & Weight: Vital Signs (12 hours) Temp Pulse Resp BP BP Pulse Ox 07/12/17 08:05 97.8 F 68 12 07/12/17 07:30 97.8 F 68 12 126/82 96 07/12/17 04:00 97.6 F 71 18 116/58 L 93 L Weight Weight 93.349 kg I&O: 07/11/17 07/12/17 07/13/17 06:59 06:59 06:59 Intake Total 2058 Output Total 400 Balance 1658 Result Diagrams: 07/11/17 15:33 07/12/17 06:04 <Micha Car - Last Filed: 07/12/17 10:31> Phys Exam - Physical Examination HEENT: moist MMs Neck: no nodes Respiratory: no wheezing, clear to auscultation bilateral Cardiovascular: RRR, no significant murmur Gastrointestinal: soft, non-tender, no distention, positive bowel sounds Musculoskeletal: no edema, pulses present Neurological: non-focal, normal sensation, moves all 4 limbs Lymphatic: no nodes Psychiatric: normal affect, A&O x 3 Skin: no rash <Brijesh Maharaj - Last Filed: 07/12/17 07:38> Dx/Plan (1) Unstable angina Status: Acute (2) CKD (chronic kidney disease) stage 5, GFR less than 15 ml/min Code(s): N18.5 - CHRONIC KIDNEY DISEASE, STAGE 5 Status: Chronic (3) Diabetes type 2, controlled Code(s): E11.9 - TYPE 2 DIABETES MELLITUS WITHOUT COMPLICATIONS Status: Chronic QualifierTitle: Diabetes mellitus intermediate accountant insulin use: without intermediate accountant use Diabetes mellitus complication detail: with chronic kidney disease (4) HLD (hyperlipidemia) Code(s): E78.5 - HYPERLIPIDEMIA, UNSPECIFIED Status: Chronic (5) HTN (hypertension) Code(s): I10 - ESSENTIAL (PRIMARY) HYPERTENSION Status: Chronic (6) Elevated CK Status: Acute - Plan Plan: 1) Unstable angina: - Will start on therapeutic Heparin because of CKD - Stress test this AM - Troponins negative x3 - HEART score = 6, - LOKESH risk score = 2-3. - Renally dosed statin. - Continue aspirin 2) HTN: - at Goal - PRN BP control - monitor 3) DM2: - Accuchecks, SSI. - Continue Januvia 4) PVD: - Continue aspirin - Renally dosed statin 5) CKD, stage 5 - IVF below maintenance - At baseline 6) Elevated CK - Decreased to 250 this AM - IVF CODE STATUS: FULL CODE Disposition: Stable, Will await stress results. <Brijesh Maharaj - Last Filed: 07/12/17 07:38> (1) Unstable angina Status: Acute (2) CKD (chronic kidney disease) stage 5, GFR less than 15 ml/min Code(s): N18.5 - CHRONIC KIDNEY DISEASE, STAGE 5 Status: Chronic (3) Diabetes type 2, controlled Code(s): E11.9 - TYPE 2 DIABETES MELLITUS WITHOUT COMPLICATIONS Status: Chronic Qualifiers: Diabetes mellitus intermediate accountant insulin use: without intermediate accountant use Diabetes mellitus complication detail: with chronic kidney disease (4) HLD (hyperlipidemia) Code(s): E78.5 - HYPERLIPIDEMIA, UNSPECIFIED Status: Chronic (5) HTN (hypertension) Code(s): I10 - ESSENTIAL (PRIMARY) HYPERTENSION Status: Chronic (6) Elevated CK Status: Acute <Micha Car - Last Filed: 07/12/17 10:31> Attending Addendum - Attending Addendum Date/Time: 07/12/17 1030 I personally evaluated the patient and discussed the management with Dr. Maharaj. I agree with the History, Examination, Assessment and Plan documented above with any addition or exceptions noted below. Patient seen by cardiology yesterday and therapeutic heparin stopped as low concern for unstable angina. Stress testing ordered for today which is currently in progress. Further mgmt depending on results of stress test and further cardiology recs. <Micha Car - Last Filed: 07/12/17 10:31>
[2017-07-12 06:42] LABS: Anion Gap 12 mmol/L (10-20); BUN (Urea Nitrogen) 52 mg/dL (9.8-20.1); CK (CPK) 250 U/L (29-168); Calc. Creatinine Clearance 19 mL/min (70-130); Calcium 8.7 mg/dL (7.8-10.44); Carbon Dioxide 21 mmol/L (22-29); Chloride 109 mmol/L (98-107); Estimated GFR-MDRD 11; Glucose 112 mg/dL (70-105); Potassium 3.7 mmol/L (3.5-5.1); Sodium 138 mmol/L (136-145)
[2017-07-12] MEDS ORDERED: ADENOSINE 60 MG/20 ML VIAL ONE (06:45)
[2017-07-12] MEDS ORDERED: Aspirin 325 MG TAB PO SCH (09:00)
[2017-07-12] MEDS ORDERED: Heparin 5,000 UNITS/ML VIAL SC SCH (09:00)
[2017-07-12] MEDS ORDERED: sitaGLIPtin Phosphate 25 MG TAB PO SCH (09:00)
[2017-07-12] MEDS ORDERED: Furosemide 20 MG TAB PO SCH (09:00)
[2017-07-12] MEDS ORDERED: Alogliptin 6.25 MG TAB PO SCH (09:00)
--- NOTE | 2017-07-12 11:50 | NM ---
NUCLEAR MEDICINE CARDIAC STRESS WITH ER AND WALL MOTION: HISTORY: Chest pain. COMPARISON: None. TECHNIQUE: Two-day protocol was utilized. The patient was administered 27 mCi of Technetium 99m sestamibi for r est imaging and 32 mCi of Technetium 99m sestamibi for stress imaging. Cardiac gating is performed. FINDINGS: On the attenuated correction and nonattenuated correction images, there is homogeneous distribution o f the radiotracer. No fixed defect or reversibility. End-diastolic volume is 97 mL. End-systolic volume is 52 mL. CARDIAC GATING: Global hypokinesis with ejection fraction is 46%. IMPRESSION: 1. No reversibility. No fixed defect. 2. Global hypokinesis with ejection fraction is 46%. POS: RADHA
[2017-07-12 12:10] VITALS: BP 143/76; TEMP 98
[2017-07-12] MEDS ORDERED: Bisoprolol Fumarate 5 MG TAB PO SCH (14:15)
--- NOTE | 2017-07-12 16:04 | PRG ---
DATE OF SERVICE: 07/12/2017 SUBJECTIVE: Ms. Haider is doing well today, no complaints, no chest pain. PHYSICAL EXAMINATION: VITAL SIGNS: Blood pressure 143/76, pulse 64 regular. LUNGS: Clear. CARDIAC: Normal S1 and normal S2. Stress test revealed an ejection fraction estimated at 46%, but n o ischemia. ASSESSMENT: 1. Stage 5 renal failure. The patient wishes to stay off dialysis as long as possible. Her creatin ine improved from 5.6-5.0 yesterday with intravenous fluid. 2. Chest pain, atypical for angina. 3. Negative cardiac enzymes. 4. Stress test negative for ischemia. PLAN: 1. She is to have an echocardiogram. 2. Aspirin 81 mg daily. 3. Statin. 4. She also has peripheral vascular disease. She is symptomatic from that. She has previously had intervention by Dr. Carreon, apparently CO2 was used as the contrast. It is explained to the patient that if she has contrast, she will almost certainly need dialysis within the next day or two followin g that. She wishes to hold off on dialysis until absolutely essential. She is to follow up with Dr. Champagne, who she has been seen in the office. I would take her off the furosemide, which she was on at home and resume the bisoprolol.
[2017-07-13] MEDS ORDERED: Bisoprolol Fumarate 5 MG TAB PO SCH (09:00)
--- NOTE | 2017-07-14 01:37 | DIS-2 ---
DATE OF ADMISSION: 07/12/2017 DATE OF DISCHARGE: 07/12/2017. PRIMARY CARE PHYSICIAN: Dr. Maharaj ADMITTING ATTENDING: Dr. Car. DISCHARGE ATTENDING: Dr. Car. CONSULTATIONS: Dr. Puri, Cardiology. PROCEDURES: The patient underwent a chest x-ray on 07/11/2017 that showed no active intrathoracic disease. The patient also underwent nuclear stress test on 07/11/2017 that showed no reversibility, no fixed defect global hypokinesis with ejection fraction of 46%. The patient underwent an echocardiogram on 07/12/2017 that showed left ventricle size mildly increased. Ejection fraction is visually estimated at 50% -55%. Moderate concentric left ventricular hypertrophy. Structurally normal mitral valve. No evidence of mitral regurgitation. Structurally normal aortic valve with no significant stenosis or regurgitation. Mild tricuspid regurgitation. PRIMARY DIAGNOSES: 1. Angina. 2. Stage 5 chronic kidney disease. 3. Type 2 diabetes. 4. Hyperlipidemia. 5. Hypertension. 6. Elevated CK. DISCHARGE MEDICATIONS: 1. Gabapentin 300 mg p.o. daily. 2. Bisoprolol/hydrochlorothiazide 10 mg/6.25 mg 1 tablet p.o. daily. 3. Rosuvastatin 10 mg p.o. daily. 4. Januvia 25 mg p.o. daily. DISCONTINUED MEDICATIONS: 1. Furosemide 20 mg p.o. daily. 2. Rosuvastatin 20 mg p.o. at bedtime. HISTORY OF PRESENT ILLNESS AND HOSPITAL COURSE: This is a 51-year-old female who presents with 1-week history of intermittent chest pain. She notes that her pains have been occurring for a longer period of time, but over the last week it has increased with frequency and severity. She states the pain in the right side of the chest and move to the right arm and right jaw. She states she is always nauseous and she cannot determine if there is worse at this time or not. She denies vision changes, sweating episodes, fevers or chills. She states that the pain can occur at rest and when she is exerting herself, which is usually walking. She states the pain usually comes and goes without an onset , but over the last week it has lasted longer and longer and has come back more frequently. She has a lot of concern over her CKD stage 5 and does not want to get any worse. She has no other complaints today. In the ER, she was given aspirin 324 mg. During this hospitalization, the patient had vital signs that were within normal limits, was afebrile and normotensive blood pressure. The patient had some notable lab values creatinine of 5.08 and the GFR of 11, which is chronically stable for her. Her blood glucose was well controlled, ranging from 99-146. The patient also had a CK value that was 302 on admission, but trended down to 250 on day of discharge. The patient had a resolution of her chest pain and her biggest concern during this hospitalization was her CKD. Her CKD was not in acute failure or in need of emergent dialysis at this time, and so it was opted that she would be following up with her PCP to get a referral to a new enterprise project manager out in the community. The patient underwent an echocardiogram and a stress test and was seen by Dr. Puri and he determined that the chest pain is more atypical rather than anginal in nature. He recommended cessation of her Lasix and continuation of her follow up with Dr. Champagne here, her primary terminal supervisor in the future. Otherwise, the patient had no further complaints during this hospitalization and was discharged in appropriate condition. DISPOSITION: Stable. DISCHARGE INSTRUCTIONS: 1. Location, she will be discharged home under the care of herself. 2. Diet will be a heart healthy and diabetic diet. 3. Activity will be as tolerated with no restrictions and follow up will be with her primary care provider at [facility] in 3 days to further discuss her chronic diseases as well as coordinate her care. She also to follow up with Dr. Colten Champagne, Cardiology in 2-3 weeks to further discuss her findings of her echocardiogram and her stress test. ARYAN
--- NOTE | 2017-07-19 15:06 | EKG ---
Test Reason : Blood Pressure : / mmHG Vent. Rate : 067 BPM Atrial Rate : 067 BPM P-R Int : 176 ms QRS Dur : 088 ms QT Int : 392 ms P-R-T Axes : 053 044 -56 degrees QTc Int : 414 ms Normal sinus rhythm T wave abnormality, consider inferior ischemia T wave abnormality, consider anterolateral ischemia Abnormal ECG Confirmed by JOHN ARCEO, ZAIN ([id number]), editor city [place] NOYOLA ([id number]) on 07/19/2017 3:05:30 PM Referred By: Confirmed By:ZAIN LOPEZ MD
--- NOTE | 2017-08-06 14:29 | STRESS ---
Acquisition Time: 2017-07-12 08:40:32 Total Exercise Time: 00:04:00 Test Indications: CHEST PAIN Medications: Protocol: ADENOSINE Max HR: 101 BPM 60% of Pred: 167 BPM Max BP: 124/082 mmHG Max Work Load: 1.0 METS RESTING ECG: NORMAL SINUS RHYTHM AT 66BPM WITH LVH AND LVH REPOLARIZATION ABNORMALITIES SYMPTOMS: CHEST PAIN NORMAL BP RESPONSE ECTOPY: NONE ECG STRESS: NO SIGNIFICANT CHANGES INTERPRETATION: INDETERMINATE DUE TO BASELINE ECG ABNORMALITIES/AWAIT NUCLEAR IMAGES FOR DEFINITIVE DIAGNOSIS Confirmed by DR. Massiel ANDREW ([id number]), publication editor DEXTER SHETTY ([id number]) on 08/06/2017 2:29:36 PM Referred By: MD Kike SOUZA Confirmed By:DR. Massiel ANDREW
== END 2017-07-12 16:29 | disposition home or self-care (01) ==
LOC: ERS 10:21 → 2SW 13:54 → OBSVTOIN 07-12 13:43 → INTOOBSV 07-12 13:43
PROVIDERS: ADMIT Student in an Organized Health Care Education/Training Program; ATTEND Student in an Organized Health Care Education/Training Program
DX: I25.110 Atherosclerotic heart disease of native coronary artery with unstable angina pectoris (principal); I12.0 Hypertensive chronic kidney disease with stage 5 chronic kidney disease or end stage renal disease; E11.22 Type 2 diabetes mellitus with diabetic chronic kidney disease; N18.5 Chronic kidney disease, stage 5; I73.9 Peripheral vascular disease, unspecified; E78.00 Pure hypercholesterolemia, unspecified; Z79.84 Long term (current) use of oral hypoglycemic drugs; Z79.899 Other long term (current) drug therapy; Z88.5 Allergy status to narcotic agent
CPT/HCPCS: 36415; 36416; 71045; 78452; 80048; 80053; 82550; 82553; 83690; 83880; 84484; 85025; 85730; 93005; 93017; 93306; A9500; J0153; J1644

== ENCOUNTER 2017-08-13 11:07 | Inpatient (IN) | payer OTHER ==
[2017-08-13 11:43] LABS: #Basophils 0.1 thou/uL (0.0-0.2); #Eosinphils 0.5 thou/uL (0.0-0.7); #Lymphocytes 2.2 thou/uL (1.20-3.40); #Monocytes 0.5 thou/uL (0.11-0.59); #Neutrophils 5.5 thou/uL (1.40-6.50); %Basophils 0.7 % (0.0-1.0); %Eosinophils 5.5 % (0.0-10.0); %Lymphocytes 24.8 % (21.0-51.0); %Monocytes 5.2 % (0.0-10.0); %Neutrophils 63.8 % (42.0-75.0); Hemoglobin 12.8 g/dL (12.0-16.0); Mean Corpuscular Hemoglobin 27.4 pg (27.0-31.0); Mean Corpuscular Volume 83.1 fl (81.0-99.0); Mean Platelet Volume 9.6 fL (7.4-10.4); Platelet Count 210 thou/uL (130-400); RBC Distribution Width 13.6 % (11.5-14.5); Red Blood Cell (RBC) Count 4.68 mill/uL (4.20-5.40); White Blood Cell (WBC) Count 8.7 thou/uL (4.8-10.8)
[2017-08-13 11:45] LABS: Bilirubin Negative (Negative); Blood, Urine Trace (Negative); Clarity CLEAR (Clear); Glucose, Urine (Dipstick) Negative (Negative); Leukocyte Trace (Negative); Nitrite Negative (Negative); Protein, Urine (Dipstick) 300 mg/dL (Neg-Trace); Specific Gravity, Urine 1.013 (1.002-1.036)
[2017-08-13 11:48] LABS: Bacteria/HPF Rare-Few HPF (None Seen); Hyaline Casts/LPF 0-3 HYALINE CAST LPF (0-3 Hyaline); Pathc Cast-AUWi Flag 0.43 (0-2.49); Squamous Epithelial 0-3 HPF (0-3)
[2017-08-13] MEDS ORDERED: PROPOFOL 200 MG/20 ML VIAL ONE (11:50)
[2017-08-13] MEDS ORDERED: Lidocaine 1% PF 5 ML VIAL ONE (11:50)
[2017-08-13 12:06] LABS: BHCG - Serum Negative (NEGATIVE); Pregs Control Background? CLEAR/WHITE (CLR/WHITE); Pregs Control Bar Appear? YES (CONTROL BAR)
[2017-08-13 12:13] LABS: ALT (SGPT) 15 U/L (8-55); AST (SGOT) 13 U/L (5-34); Alkaline Phosphatase 104 U/L (40-150); Anion Gap 14 mmol/L (10-20); BUN (Urea Nitrogen) 36 mg/dL (9.8-20.1); Bilirubin, Total 0.3 mg/dL (0.2-1.2); Calc. Creatinine Clearance 0 mL/min (70-130); Calcium 9.1 mg/dL (7.8-10.44); Carbon Dioxide 23 mmol/L (22-29); Chloride 107 mmol/L (98-107); Estimated GFR-MDRD 10; Globulin 3.8 g/dL (2.4-3.5); Glucose 142 mg/dL (70-105); Lipase 159 U/L (8-78); Potassium 3.8 mmol/L (3.5-5.1); Protein, Total 7.8 g/dL (6.0-8.3); Sodium 140 mmol/L (136-145)
[2017-08-13] MEDS ORDERED: Ondansetron ODT 4 MG TAB ONE (14:00)
[2017-08-13] MEDS ORDERED: Bisacodyl 5 MG TAB PO PRN (14:51)
[2017-08-13] MEDS ORDERED: Dextrose 5% in Water 1,000 ML IV PRN (14:51)
[2017-08-13] MEDS ORDERED: Dextrose 50% Abboject 50 ML SYRINGE SLOW IVP PRN (14:51)
[2017-08-13] MEDS ORDERED: Mag-Al 1200 mg/1200 mg/30 ML UDCUP PO PRN (14:51)
[2017-08-13] MEDS ORDERED: Acetaminophen 325 MG TAB PO PRN (14:51)
[2017-08-13] MEDS ORDERED: CEFAZOLIN/Water 2 GM/20 ML SYRINGE SLOW IVP SCH (15:00)
[2017-08-13 15:06] VITALS: BMI 32.6
--- NOTE | 2017-08-13 16:21 | ULT ---
BILATERAL UPPER EXTREMITY VENOUS DOPPLER ULTRASOUND FOR DIALYSIS ACCESS: 08/13/17 HISTORY: End-stage renal disease. RIGHT UPPER EXTREMITY BRACHIAL ARTERY: 2.9 mm RADIAL ARTERY: 1.3 mm ULNAR ARTERY: 1.7 mm CEPHALIC VEIN Proximal Arm: 0.8 mm Mid Arm: 1 mm Distal Arm: 0.9 mm Antecubital Fossa: 1.1 mm Proximal Forearm: 0.7 mm Mid Forearm: 0.8 mm Distal Forearm: 0.8 mm BASILIC VEIN Proximal Arm: 2.3 mm Mid Arm: 2.2 mm Distal Arm: 1.6 mm Antecubital Fossa: 1.3 mm Proximal Forearm: 0.9 mm Mid Forearm: 0.9 mm Distal Forearm: 0.7 mm LEFT UPPER EXTREMITY BRACHIAL ARTERY: 3.7 mm RADIAL ARTERY: 1.3 mm ULNAR ARTERY: 1.7 mm CEPHALIC VEIN Proximal Arm: 1.9 mm Mid Arm: 2.1 mm Distal Arm: 2.1 mm Antecubital Fossa: 3.4 mm Proximal Forearm: 1.2 mm Mid Forearm: 1.3 mm Distal Forearm: 1.5 mm BASILIC VEIN Proximal Arm: 4.2 mm Mid Arm: 3.1 mm Distal Arm: 2.4 mm Antecubital Fossa: 1.8 mm Proximal Forearm: 1.2 mm Mid Forearm: 1.3 mm Distal Forearm: 0.9 mm POS: [facility]
--- NOTE | 2017-08-13 16:24 | PDOC.FPRHP ---
- History of Present Illness Chief Complaint: Nausea, abdominal discomfort History of Present Illness: Date Seen: 08/13/17 Time Seen: 163 Mrs. Haider is a pleasant 51 year old woman who presented to the ED complaining of nausea for the last week. Associated symptoms include sharp right flank pain today, vomiting x2, abdominal cramping, and generalized weakness. She denies fevers, chills, diarrhea, constipation, hematochezia, melena, dysuria, and polyuria. ED Course: Patient was seen in ED by Dr. Mccracken who found her to have a BUn of 36 and creatninine of 5.39. Potassium was in normal range at 3.8. He contacted her supervisor electronics assembly, Dr. Dagoberto Roberts, who recommended admission to establish dialysis access and begin treatment with hemodialysis. - Allergies/Adverse Reactions Allergies Allergy/AdvReac Type Severity Reaction Status Date / Time codeine Allergy Intermediate Verified 05/15/17 18:10 - Home Medications Medication Instructions Recorded Confirmed Type Gabapentin 300 mg PO DAILY PRN 12/08/12 08/13/17 History Bisoprolol Fumarate/HCTZ 1 tablet PO DAILY 10/18/13 08/13/17 History sitaGLIPtin Phosphate [Januvia] 25 mg PO DAILY 07/11/17 08/13/17 History Rosuvastatin [Crestor] 10 mg PO DAILY #30 tab 07/12/17 08/13/17 Rx - History PMHx: CKD 4, HTN, HLD, DM2, osteoarthritis, seasonal allergies, was on hemodialysis for about 6 months in 1986 for ARF with HUS PSHx: BTL, dialysis shunt in left forearm in 1966 FHx: Patient does not know family history Social: Lives with boyfriend and granddaughter. Works at [employer]. Quit smoking 5 years ago after 30 pack year history. No alcohol or drug use. - Review of Systems General: denies: fever/chills, weight/appetite/sleep changes, night sweats, fatigue Eyes: reports: other (Generalized weakness). denies: eye pain, vision changes ENT: denies: nasal congestion, rhinorrhea Respiratory: denies: cough, congestion, shortness of breath, exercise intolerance Cardiovascular: denies: chest pain, palpitation, edema, paroxysmal nocturnal dyspnea Gastrointestinal: reports: nausea, vomiting, abdominal pain. denies: diarrhea, constipation Genitourinary: denies: incontinence, dysuria, polyuria, discharge Skin: denies: rashes, lesions, itching Musculoskeletal: denies: pain, tenderness, stiffness, swelling Neurological: denies: numbness, syncope, seizure, weakness Psychological: denies: anxiety, depression - Vital signs BP: 146/85 HR: 66 RR: 20 Tmax: 98.5 Pox: 96% on RA Wt: 91.76 kg - Physical Exam Constitutional: NAD, awake, alert and oriented, well developed HEENT: normocephalic and atraumatic, PERRLA, EOMI, conjunctiva clear, no scleral icterus, grossly normal vision, grossly normal hearing, MMM, oropharynx clear, good dention Neck: supple, FROM, trachea midline, no LAD, no JVD, no thyromegaly, no bruits Chest: no-tender to palpation, no lesions Heart: RRR, normal S1/S2, no murmurs/rubs/gallops, pulses present, no edema Lungs: CTAB, no respiratory distress, good air movement, no rales/rhonchi, no wheezing, no retractions Abdomen: soft, non-tender, bowel sounds present, no masses/distention, no hernias Musculoskeletal: normal structure, normal tone, ROM grossly normal Neurological: no focal deficit, CN II-XII intact, normal sensation, DTRs 2+ Skin: no rash/lesions, good turgor, capillary refill <2 seconds, no jaundice Heme/Lymphatic: no unusual bruising or bleeding, no purpura, no petechia, no LAD Psychiatric: normal mood and affect, good judgment and insight, intact recent and remote memory FMR H&P: Results - Labs Result Diagrams: 08/13/17 11:30 08/13/17 11:30 Lab results: WBC 8.7 thou/uL (4.8-10.8) 08/13/17 11:30 Hgb 12.8 g/dL (12.0-16.0) 08/13/17 11:30 Hct 38.9 % (36.0-47.0) 08/13/17 11:30 MCV 83.1 fl (81.0-99.0) 08/13/17 11:30 Plt Count 210 thou/uL (130-400) 08/13/17 11:30 Neutrophils % 63.8 % (42.0-75.0) 08/13/17 11:30 Sodium 140 mmol/L (136-145) 08/13/17 11:30 Potassium 3.8 mmol/L (3.5-5.1) 08/13/17 11:30 Chloride 107 mmol/L (98-107) 08/13/17 11:30 Carbon Dioxide 23 mmol/L (22-29) 08/13/17 11:30 BUN 36 mg/dL (9.8-20.1) H 08/13/17 11:30 Creatinine 5.39 mg/dL (0.6-1.1) H 08/13/17 11:30 Glucose 142 mg/dL (70-105) H 08/13/17 11:30 Calcium 9.1 mg/dL (7.8-10.44) 08/13/17 11:30 Total Bilirubin 0.3 mg/dL (0.2-1.2) 08/13/17 11:30 AST 13 U/L (5-34) 08/13/17 11:30 ALT 15 U/L (8-55) 08/13/17 11:30 Alkaline Phosphatase 104 U/L (40-150) 08/13/17 11:30 Serum Total Protein 7.8 g/dL (6.0-8.3) 08/13/17 11:30 Albumin 4.0 g/dL (3.5-5.0) 08/13/17 11:30 Lipase 159 U/L (8-78) H 08/13/17 11:30 Urine Ketones Negative mg/dL (Negative) 08/13/17 11:30 Urine Blood Trace (Negative) H 08/13/17 11:30 Urine Nitrite Negative (Negative) 08/13/17 11:30 Ur Leukocyte Esterase Trace (Negative) H 08/13/17 11:30 Urine RBC 4-6 HPF (0-3) 08/13/17 11:30 Urine WBC 4-6 HPF (0-3) H 08/13/17 11:30 Ur Squamous Epith Cells 0-3 HPF (0-3) 08/13/17 11:30 Urine Bacteria Rare-Few HPF (None Seen) 08/13/17 11:30 FMR H&P: A/P - Problem List (1) End stage renal disease Current Visit: Yes Status: Acute Priority: High Code(s): N18.6 - END STAGE RENAL DISEASE Assessment and Plan: CKD IV now progressed to ESRD - Admit to medical. - Potassium within normal limits. - No evidence of fluid overload - Dr. Roberts consulted. Appreciate his recommendations - Dr. Corrigan consulted to evaluate for dialysis access. Appreciate his recommendations - Dr. Roberts states patient will need PPD checked at 48 and 72 hours. He states he will fax over orders including this - Case Mangagement consulted to arrange for outpatient dialysis bed prior to discharge (2) Diabetes type 2, controlled Current Visit: No Status: Chronic Priority: Medium Code(s): E11.9 - TYPE 2 DIABETES MELLITUS WITHOUT COMPLICATIONS Qualifiers: Diabetes mellitus truck terminal manager insulin use: without senior care use Diabetes mellitus complication detail: with chronic kidney disease Assessment and Plan: Home Januvia continued (3) HTN (hypertension) Current Visit: No Status: Chronic Code(s): I10 - ESSENTIAL (PRIMARY) HYPERTENSION Qualifiers: Hypertension type: renovascular hypertension Qualified Code(s): I15.0 - Renovascular hypertension Assessment and Plan: Home Biosprolol-HCTZ continued (4) HLD (hyperlipidemia) Current Visit: No Status: Chronic Code(s): E78.5 - HYPERLIPIDEMIA, UNSPECIFIED Assessment and Plan: Continue home Crestor (5) Osteoarthritis Current Visit: Yes Status: Acute Priority: Low Code(s): M19.90 - UNSPECIFIED OSTEOARTHRITIS, UNSPECIFIED SITE Qualifiers: Osteoarthritis location: unspecified site Osteoarthritis type: unspecified Qualified Code(s): M19.90 - Unspecified osteoarthritis, unspecified site Assessment and Plan: Tylenol PRN - Plan Disposition/LOS: Admit to Medical Anticipated LOS 2 days Anticipated DC - Home when outpatient dialysis arranged FMR H&P: Upper Level - Plan Date/Time: 08/13/17 2642 I, [], have evaluated this patient and agree with findings/plan as outlined by mba intern resident. Pertinent changes/additions are listed here.
--- NOTE | 2017-08-13 17:45 | HP ---
I have seen the patient and evaluated the patient. I discussed the case with Dr. Julio Marroquin. I agree with his assessment and plan. Ms. Haider is a pleasant 51-year-old black female patient with a history of type 2 diabetes and a lo ng history of essential hypertension who have previously been on dialysis several years ago. She has been followed by a yarn weight and strength tester who has determined she may likely need to resume dialysis. He has t herefore referred her to the ER for admission and workup for hemodialysis. PHYSICAL EXAMINATION: GENERAL: The patient is awake, alert, in no distress. VITAL SIGNS: Her current blood pressure is 160/80, pulse rate 70, respirations 12. She is afebrile. Her room air O2 sat is 96%. GENERAL: She is a pleasant, obese female in no distress. HEENT: Atraumatic, normocephalic. NECK: Supple, no JVD. CARDIAC: S4 gallop. No murmur or rub noted. LUNGS: Diminished breath sounds, but clear. No rales, rhonchi or wheezes. ABDOMEN: Obese, flat, soft. No rebound or rigidity. EXTREMITIES: Trace edema. NEUROLOGIC: No focal deficits. LABORATORY DATA: Current labs are not available. ASSESSMENT: 1. Chronic kidney disease, in need of hemodialysis 2. Type 2 diabetes. 3. Essential hypertension. PLAN: Admit. Follow with Nephrology.
[2017-08-13] MEDS ORDERED: Midazolam HCl 2 mg/2 ml Vial ONE (17:54)
[2017-08-13] MEDS ORDERED: Fentanyl 100 MCG/2 ML VIAL ONE ×2 (17:54→19:21)
[2017-08-13] MEDS ORDERED: Propofol 500 MG/50 ML VIAL ONE (17:54)
[2017-08-13] MEDS ORDERED: Lidocaine 2% 10 ML INJ ONE (18:02)
[2017-08-13] MEDS ORDERED: Heparin 10,000 UNITS/1 ML VIAL ONE (18:02)
[2017-08-13] MEDS ORDERED: Sodium Chloride 0.9% 20 ML ONE (18:02)
[2017-08-13] MEDS ORDERED: Bupivacaine HCl 0.5%/Epinephrine 1:200,000/PF 30 ml Vial ONE (18:02)
[2017-08-13] MEDS ORDERED: CEFAZOLIN/Water 2 GM/20 ML SYRINGE ONE (18:11)
[2017-08-13] MEDS ORDERED: Sodium Chloride 0.9% 30 ML ONE (18:13)
[2017-08-13] MEDS ORDERED: Promethazine HCl 25 MG/ML VIAL SLOW IVP PRN (18:48)
[2017-08-13] MEDS ORDERED: Ondansetron HCl/PF 4 MG/2 ML Vial IVP PRN (18:48)
[2017-08-13] MEDS ORDERED: traMADol HCl 50 MG TAB PO PRN (19:06)
[2017-08-13] MEDS ORDERED: Acetaminophen 500 MG TAB PO PRN (19:06)
--- NOTE | 2017-08-13 19:38 | RAD ---
PORTABLE CHEST: 08/13/17 INDICATIONS: Central line. Dual lumen central line is in place via the right jugular vein. The tip overlies the SVC. There is a second central line via the left jugular vein with tip overlying the left upper chest. I cannot confi rm adequate intravenous position of this left sided catheter. Lung zamora are clear. Heart and mediastinum unremarkable. IMPRESSION: The right sided central line appears adequately positioned overlying the SVC. The left jugular centra l line has an abnormal position with the tip along the left side of the mediastinum. I cannot confirm its location. Valerie, nurse in Recovery, was notified at the time of this dictation. She will notify Dr. Corrigan of thi s finding. POS: [facility]
[2017-08-13] MEDS ORDERED: Ondansetron ODT 4 MG TAB PO PRN (20:00)
--- NOTE | 2017-08-14 02:36 | OP ---
PREOPERATIVE DIAGNOSIS: End-stage renal disease, poor IV access. POSTOPERATIVE DIAGNOSIS: End-stage renal disease, poor IV access with inability to thread the left I J catheter into the superior vena cava under fluoroscopy. PROCEDURE: Ultrasound fluoroscopy used to place a right internal jugular vein cuffed tunnel hemodial ysis catheter, angiodynamics precurved. Left IJ central line triple lumen. SURGEON: Dagoberto Corrigan M.D. ANESTHESIA: IV sedation, local 0.5% Marcaine with epinephrine, 30 mL, mixed with 2% Xylocaine, 10 mL . PROCEDURE: The patient was taken to the operating room in supine position, neck and chest prepared w ith ChloraPrep, draped in routine fashion. Local anesthetic mixture infiltrated in the skin and subc utaneous tissue about the operative site. Using ultrasound guidance, the right and left internal jug ular veins were cannulated with trocar catheter and J-wire threaded. Trocar catheter removed. A sta b incision made at the J-wire entrance site on both sides of the neck. Stab incision made over the r ight chest. Using the tunneling device, precurved angiodynamics cuffed tunnel hemodialysis catheter tunneled between the two incisions, placing the fabric cuff beneath the skin exit site. Catheter sec ured with 2 interrupted sutures of 3-0 nylon. Seldinger technique used to place a left internal jugu lar vein triple lumen catheter securing it with 3-0 nylon suture. I could not thread the superior ve na cava as there was some obstruction, but it did have good blood return and fluoroscopy was in adequ ate position. Smaller medium sized dilators placed to the right internal jugular vein, the internal jugular vein re moved and ports sheath placed over the J-wire on the right into the superior vena cava and dilator an d J-wire removed. Catheter placed through pull-away sheath. Pull-away sheath removed. Platysma subhash roximated with 4-0 Monocryl, skin with subdermal 4-0 Monocryl and DermaGlue applied. Each port aspir ated blood and flushed with saline solution then heparinized saline solution 1000 units heparin per m L indicated volume of the port. The patient tolerated the procedure well.
--- NOTE | 2017-08-14 02:40 | HP ---
HISTORY OF PRESENT ILLNESS: Jocelyn Haider is a 51-year-old black female with diabetes mellitus, h ypertension, has progressed end-stage renal disease. She had been followed by Dr. Roberts. She has b een admitted to the hospitalist service. I have been asked to see her regarding placement of hemodia lysis catheter and central line. She will also need a dialysis access for long-term dialysis. Ultra sound vein mapping has been performed and veins are better in her left arm. She is right-handed. Pl an is to place hemodialysis catheter and central line tonight and then allow dialysis in the morning and then placement of a left arm fistula tomorrow. Possible prosthetic graft, possible stage fistula depending on status of veins. ALLERGIES: CODEINE, pruritus. TOBACCO: Cessation several years ago. ALCOHOL: None. MEDICATIONS: Januvia 25 mg a day, Crestor 10 mg a day, gabapentin 300 mg p.r.n., bisoprolol daily. PAST SURGICAL HISTORY: Tubal ligation. She had some chest tubes in [place] in the . PAST MEDICAL HISTORY: Chronic kidney disease, on dialysis in the ; had what sounds like to be c hest tubes or nephrostomy tubes, it is difficult to tell; type 2 diabetes mellitus; hypertension; met abolic syndrome; morbid obesity. SOCIAL HISTORY: She lives with her boyfriend. She has had four children. She works as a concrete pourer. She is followed by Dr. Dagoberto Roberts, Nephrology. PHYSICAL EXAMINATION: VITAL SIGNS: Height 5 foot 6 inches, weight 202 pounds, 32 BMI, temperature 98.2 degrees, pulse 66, blood pressure 149/87. HEENT: Unremarkable. LUNGS: Clear to auscultation. CARDIAC: Regular rate and rhythm without murmur or gallop. ABDOMEN: Soft, obese, nontender. EXTREMITIES: Palpable radial pulses bilaterally. Left hand IV. LABORATORY DATA: White count 8, hemoglobin 12. Sodium 140, potassium 3.8, BUN 36, creatinine 5.39, GFR 10, glucose 142. ASSESSMENT AND PLAN: 1. End-stage renal disease, placement of hemodialysis catheter and central line tonight. Placement of left arm primary fistula, possibly will need a staged fistula or prosthetic graft depending on sta tus of veins. Risk and benefits explained, she consents. 2. Metabolic syndrome. 3. Hypertension. 4. Diabetes.
[2017-08-14] MEDS: Bisoprolol Fumarate/HCTZ 10 mg/6.25 mg Tablet PO SCH (05:38)
[2017-08-14 06:14] LABS: #Basophils 0.1 thou/uL (0.0-0.2); #Eosinphils 0.4 thou/uL (0.0-0.7); #Lymphocytes 2.1 thou/uL (1.20-3.40); #Monocytes 0.6 thou/uL (0.11-0.59); %Basophils 0.7 % (0.0-1.0); %Eosinophils 4.9 % (0.0-10.0); %Lymphocytes 22.6 % (21.0-51.0); %Monocytes 6.2 % (0.0-10.0); %Neutrophils 65.6 % (42.0-75.0); Hemoglobin 11.7 g/dL (12.0-16.0); Mean Corpuscular HGB CONC 33.2 g/dL (32.0-36.0); Mean Corpuscular Hemoglobin 27.3 pg (27.0-31.0); Mean Corpuscular Volume 82.5 fl (81.0-99.0); Mean Platelet Volume 9.2 fL (7.4-10.4); Platelet Count 190 thou/uL (130-400); RBC Distribution Width 13.5 % (11.5-14.5); Red Blood Cell (RBC) Count 4.26 mill/uL (4.20-5.40); White Blood Cell (WBC) Count 9.1 thou/uL (4.8-10.8)
[2017-08-14 06:34] LABS: Anion Gap 14 mmol/L (10-20); BUN (Urea Nitrogen) 39 mg/dL (9.8-20.1); Calc. Creatinine Clearance 18 mL/min (70-130); Calcium 8.5 mg/dL (7.8-10.44); Carbon Dioxide 23 mmol/L (22-29); Chloride 107 mmol/L (98-107); Estimated GFR-MDRD 11; Glucose 97 mg/dL (70-105); Potassium 3.7 mmol/L (3.5-5.1); Sodium 140 mmol/L (136-145)
[2017-08-14] MEDS ORDERED: Bupivacaine HCl 0.5%/Epinephrine 1:200,000/PF 30 ml Vial ONE ×2 (06:34→14:30)
[2017-08-14] MEDS ORDERED: Protamine Sulfate 50 MG/5 ML VIAL ONE (06:34)
[2017-08-14] MEDS ORDERED: Ioversol 68 % 50 ML VIAL ONE (06:34)
[2017-08-14] MEDS ORDERED: Lidocaine 2% 10 ML INJ ONE (06:34)
[2017-08-14] MEDS ORDERED: Heparin 5,000 UNITS/ML VIAL ONE (06:34)
[2017-08-14] MEDS ORDERED: Ketamine 50 MG/ML VIAL ONE (07:01)
[2017-08-14] MEDS ORDERED: Propofol 500 MG/50 ML VIAL ONE (07:01)
[2017-08-14] MEDS ORDERED: Fentanyl 100 MCG/2 ML VIAL ONE ×2 (07:01→07:14)
[2017-08-14] MEDS ORDERED: Midazolam HCl 2 mg/2 ml Vial ONE ×2 (07:01→07:14)
[2017-08-14 07:07] LABS: HBSAB Concentration 6.93 mIU/mL; HBSAg Index 0.14 S/CO (0-0.99); HIV (1/2) Antibody/Antigen Non-Reactive (NonReactive); HIV 1/2 INDEX 0.11 S/CO (<1.00); Hep B Surf AB Non-Reactive (NonReactive); Hep B Surf Ag Non-Reactive S/CO (NonReactive); Hep C IgG Ab Non-Reactive (NonReactive); Hep C Index 0.24 S/CO (0-0.79)
[2017-08-14] MEDS ORDERED: CEFAZOLIN/Water 2 GM/20 ML SYRINGE ONE (07:26)
--- NOTE | 2017-08-14 08:51 | PDOC.FM ---
- Subjective Subjective: 51 yo F here for new ESRD. She had temporary HD access placed yesterday and went for a graft this am. Today she has no specific complaints and states that she is feeling well. There were no acute events over night. - Objective MAR Reviewed: Yes Vital Signs & Weight: Vital Signs (12 hours) Temp Pulse Resp BP BP Pulse Ox 08/14/17 05:24 97.8 F 76 18 151/78 H 96 08/14/17 00:00 97.9 F 71 18 130/67 97 08/13/17 23:00 75 18 130/75 08/13/17 22:30 82 18 136/81 08/13/17 22:00 72 18 139/83 08/13/17 21:30 75 18 152/72 H 08/13/17 21:00 74 18 159/79 H I&O: 08/13/17 08/14/17 08/15/17 06:59 06:59 06:59 Intake Total 360 Balance 360 Result Diagrams: 08/14/17 05:45 08/14/17 05:45 Phys Exam - Physical Examination Constitutional: NAD HEENT: moist MMs, sclera anicteric Neck: no JVD Respiratory: clear to auscultation bilateral Cardiovascular: RRR, no significant murmur Gastrointestinal: soft, non-tender Musculoskeletal: no edema New surgical incision from graft placement. Clean w/o bleeding or exudate Neurological: non-focal, moves all 4 limbs Psychiatric: normal affect, A&O x 3 Skin: no rash, normal turgor Dx/Plan (1) End stage renal disease Code(s): N18.6 - END STAGE RENAL DISEASE Status: Acute (2) Diabetes type 2, controlled Code(s): E11.9 - TYPE 2 DIABETES MELLITUS WITHOUT COMPLICATIONS Status: Chronic Qualifiers: Diabetes mellitus fpc insulin use: without fpc use Diabetes mellitus complication detail: with chronic kidney disease (3) HLD (hyperlipidemia) Code(s): E78.5 - HYPERLIPIDEMIA, UNSPECIFIED Status: Chronic (4) HTN (hypertension) Code(s): I10 - ESSENTIAL (PRIMARY) HYPERTENSION Status: Chronic Qualifiers: Hypertension type: renovascular hypertension Qualified Code(s): I15.0 - Renovascular hypertension (5) Osteoarthritis Code(s): M19.90 - UNSPECIFIED OSTEOARTHRITIS, UNSPECIFIED SITE Status: Acute Qualifiers: Osteoarthritis location: unspecified site Osteoarthritis type: unspecified Qualified Code(s): M19.90 - Unspecified osteoarthritis, unspecified site - Plan Plan: ESRD - Pt s/p placement of temporary HD access and graft placement - Electrolytes stable - Dr Roberts currently following pt, appreciate further recommendations - CM has been consulted for outpt HD DM2 - continue home meds - ACHS accuchecks - SSI - low carb diet HTN - Generally well controlled - Continue home meds HLD - continue crestor OA - Generally controlled on tylenol Dispo: PT doing well, plan for likely dc in 48 hours pending HD bed and gen surg recommendations
[2017-08-14] MEDS ORDERED: Heparin 10,000 UNITS/ 10 ML VIAL ONE ×2 (09:00→13:38)
[2017-08-14] MEDS ORDERED: Promethazine HCl 25 MG/ML VIAL SLOW IVP PRN (09:23)
[2017-08-14] MEDS ORDERED: Promethazine HCl 25 MG/ML VIAL IM PRN (09:23)
[2017-08-14] MEDS ORDERED: Ondansetron HCl/PF 4 MG/2 ML Vial IVP PRN (09:23)
[2017-08-14] MEDS ORDERED: Ondansetron HCl/PF 4 MG/2 ML Vial ONE (09:43)
--- NOTE | 2017-08-14 10:47 | OP ---
DATE OF PROCEDURE: 08/14/2017 PREOPERATIVE DIAGNOSIS: End-stage renal disease, previous left Cyrus fistula in in [place]. POSTOPERATIVE DIAGNOSIS: End-stage renal disease, previous left Cyrus fistula in in [place] . PROCEDURE: Left arm primary fistula inflow proximal radial artery, outflow primarily cephalic vein u pper arm calibrated to a 4 mm coronary dilator. A smaller communication branch of basilic vein. For anatomic reasons retrograde antecubital vein used for arterial inflow and the perforating branch lig ated. SURGEON: Dr. Dagoberto Corrigan ANESTHESIA: Regional, TIVA. ESTIMATED BLOOD LOSS: 33 mL. PROCEDURE: The patient was taken to the operating room where under regional anesthesia and intraveno us sedation, left upper extremity was prepared with ChloraPrep, draped in routine fashion. The patie nt had had a previous Cyrus fistula scar. I could not palpate a good radial artery and Doppler in t his area was poor. A longitudinal incision was made in the proximal volar forearm just below the ant ecubital fossa, carried down skin, subcutaneous tissue and there was a large slightly more lateral an tecubital vein present that bifurcated into a smaller communicating branch of the basilic vein and a larger communication to the upper arm cephalic vein. Proximal radial artery dissected free, was of g ood quality and size without arteriosclerotic disease. The patient was given 6000 units heparin intr avenously. Perforating branch of the antecubital vein dissected free and branches divided between cl ips and ties and a bulldog clamp applied. For anatomic reasons retrograde antecubital vein was of go od caliber, probably due to her prior Cyrus fistula which had failed. This vein was dissected free down the distal forearm, stump ligated with 3-0 silk tie and divided and spatulated and interrogated with coronary dilators, passing coronary dilators from a 2 mm to a 4 mm dilator out the cephalic vein outflow without obstruction. Coronary dilators from a 2 mm to a 3 mm passed out the communicating b ranch to the basilic vein with some obstruction in the apex, uncertain whether it was passing to a br anch or not. This was left intact. For anatomic reasons the retrograde antecubital vein was used fo r arterial inflow as the proximal artery was clamped proximally and distally. Longitudinal arterioto my made for a 3 cm anastomosis located with Rivera scissors and end vein spatulated accordingly and an anastomosis side proximal radial artery with continuous suture of 6-0 Prolene. After completing rito stomosis, vascular clamps were released noting an acceptable signal in the cephalic vein outflow. Go od hemostasis noted. The patient given 25 mg intravenously by Anesthesia. Subcutaneous tissues appr oximated with 3-0 Monocryl, skin with subdermal 4-0 Monocryl and DermaGlue applied.
[2017-08-14 11:05] LABS: Hep B Core Total Index 7.74 S/CO (0-0.79)
[2017-08-14 11:06] LABS: Hep B Core Total Ab Reactive (NonReactive)
[2017-08-14] MEDS: Rosuvastatin 10 MG TAB PO SCH (11:14)
[2017-08-14] MEDS: Alogliptin 6.25 MG TAB PO SCH (11:37)
--- NOTE | 2017-08-14 12:19 | ADD-PRG ---
This is an addendum to the note of Dr. Juan Pablo Romero. Ms. Haider is awake, alert, pleasant. She has just returned from having her wrap placed in the left arm for hemodialysis. This will likely commence today and when social issues are resolved regarding her hemodialysis, she will be discharged.
[2017-08-14] MEDS ORDERED: PROPOFOL 200 MG/20 ML VIAL ONE (13:38)
[2017-08-14] MEDS: Tuberculin PPD 0.1 ML VIAL I-DERMAL SCH (14:17)
--- NOTE | 2017-08-14 14:26 | CON ---
DATE OF CONSULTATION: 08/14/2017 CARDIOLOGY CONSULTATION PRIMARY GRAPHIC PRE PRESS TRADES WORKER: Dr. Colten Champagne. REASON FOR CONSULTATION: Chest pain. HISTORY OF PRESENT ILLNESS: Mrs. Haider is a pleasant 51-year-old female who comes to the hospital for initiation of dialysis. She has been having right flank pain, vomiting, abdomin al cramping and generalized weakness. She was found to have a creatinine of 5.3 and a BUN of 36. Sh timoteo has been followed by Dr. Dagoberto Roberts, her general operations manager for many years and she has been on dialys is before, but has been off it and because of this situation, she was referred back into the hospital for initiation of dialysis. A tunneled catheter was inserted as well as a fistula was created on e left arm earlier today. She did have an admission to the hospital about a month ago for chest pain . She had a stress test that showed no evidence of reversible ischemia. EF was about 46% at that ti me. Echocardiogram showed an EF of about 50%-55%, this was at rest. The EF at 46% is with stress. She had no reversible ischemia and has not had any recurrence of her chest pain since. She had not b een able to follow up in the office with Dr. Champagne as her insurance would not allow it, but she is soon to be switched to normal Medicare and Medicaid due to her dialysis. Cardiology is being consul drew for evaluation of this chest pain. She also has peripheral vascular disease and has had stents placed in the past. She has not followed up in some time now. PAST MEDICAL HISTORY: 1. Chronic kidney disease stage 4, end-stage renal disease, now on hemodialysis, just started this w [facility]. 2. Hypertension. 3. Hyperlipidemia. 4. Type 2 diabetes. 5. Osteoarthritis. 6. Seasonal allergies. 7. History of hemodialysis in for acute renal failure with HUS. PAST SURGICAL HISTORY: 1. Bilateral tubal ligation. 2. Dialysis shunt in left forearm in 1986. 3. Recent tunneled catheter for hemodialysis and formation of the left shunt for future dialysis. FAMILY HISTORY: Noncontributory. SOCIAL HISTORY: Lives with boyfriend and granddaughter. Works at [employer]. Quit smoking 5 years a go. She has had a 50-brom-grbh history. No alcohol or drug use. OUTPATIENT MEDICATIONS: Include, 1. Gabapentin 300 mg p.r.n. 2. Bisoprolol with hydrochlorothiazide. 3. Januvia. 4. Crestor 10 mg a day. ALLERGIES: CODEINE. REVIEW OF SYSTEMS: A 12-point review of systems was done and is all negative unless stated in the hi story of present illness. PHYSICAL EXAMINATION: VITAL SIGNS: Temperature 97.9, pulse 67, respiration rate 16, satting 96% on room air, blood pressur e 151/78. GENERAL: Awake, alert, oriented x3, in no distress. HEENT: Normocephalic, atraumatic. NECK: Supple. LUNGS: Clear. CARDIOVASCULAR: S1, S2. No S3 or S4. ABDOMEN: Soft, positive bowel sounds. EXTREMITIES: 1+ edema. SKIN: Warm and dry. LABORATORY WORK: Reviewed. CBC is unremarkable except for hemoglobin of 11.7, which is chronic. Ch emistries unremarkable except for a BUN of 39 and a creatinine of 5.18. UA with trace blood and trac e leukocyte esterase, 4-6 white cells. B core antibody is reactive and B surface antibody index is 6 .93. Otherwise, HIV, hepatitis C and hepatitis B surface antigen and antibody are nonreactive. EKG was reviewed. ASSESSMENT AND PLAN: Chest pain: She has not had any chest pain for the last [address] had a [address] ress that showed no ischemia recently. We will plan on just following up in the office for now. She may need a heart catheterization in the near future; however, at this point, she is quite sore from all the procedures she has had and she is just initiating dialysis, which she has tolerated quite wel l without any chest pain, chest tightness or pressure and no anginal symptoms during dialysis. We wi ll have her follow up with Dr. Champagne in 2-4 weeks to hopefully set up something once she is a josefina le bit more stable from all these interventions she has had recently Thank you for letting us participate in the care of your patient. We will follow.
--- NOTE | 2017-08-14 14:31 | EKG ---
Test Reason : Blood Pressure : / mmHG Vent. Rate : 067 BPM Atrial Rate : 067 BPM P-R Int : 178 ms QRS Dur : 090 ms QT Int : 450 ms P-R-T Axes : 042 047 -32 degrees QTc Int : 475 ms Normal sinus rhythm T wave abnormality, consider inferolateral ischemia Prolonged QT Abnormal ECG When compared with ECG of 13-AUG-2017 15:15, No significant change was found Confirmed by RAINER BLANKENSHIP ([id number]) on 08/14/2017 2:31:31 PM Referred By: Pia OLIVIER Confirmed By:RAINER BLANKENSHIP
[2017-08-14] MEDS: traMADol HCl 50 MG TAB PO PRN (14:47)
[2017-08-14] MEDS ORDERED: Acetaminophen/Codeine 30-300mg Tablet PO SCH (18:00)
[2017-08-15] MEDS: traMADol HCl 50 MG TAB PO PRN (04:41)
[2017-08-15] MEDS: Alogliptin 6.25 MG TAB PO SCH ×3 (08:07→13:24)
[2017-08-15] MEDS: Bisoprolol Fumarate/HCTZ 10 mg/6.25 mg Tablet PO SCH ×3 (08:07→13:25)
[2017-08-15] MEDS: Rosuvastatin 10 MG TAB PO SCH ×3 (08:08→13:25)
--- NOTE | 2017-08-15 09:14 | PDOC.FM ---
- Subjective Subjective: Pt found ambulating in her room this morning. She has no specific complaints. She denies all symptoms in ROS. There were no acute events over night. - Objective MAR Reviewed: Yes Vital Signs & Weight: Vital Signs (12 hours) Temp Pulse Resp BP Pulse Ox 08/15/17 04:00 98.4 F 73 16 124/84 98 08/15/17 00:00 98.1 F 71 18 118/76 96 Weight Admit Weight 91.626 kg Weight 91.762 kg I&O: 08/14/17 08/15/17 08/16/17 06:59 06:59 06:59 Intake Total 360 600 Output Total 200 Balance 360 400 Result Diagrams: 08/14/17 05:45 08/14/17 05:45 Phys Exam - Physical Examination Constitutional: NAD HEENT: moist MMs, sclera anicteric Neck: no JVD, full ROM Respiratory: clear to auscultation bilateral Cardiovascular: RRR, no significant murmur Gastrointestinal: soft, non-tender, no distention Musculoskeletal: no edema R IJ in place and clean. L arm fistula site healing w/o exudate Neurological: non-focal, moves all 4 limbs Psychiatric: normal affect, A&O x 3 Dx/Plan (1) End stage renal disease Code(s): N18.6 - END STAGE RENAL DISEASE Status: Acute (2) Diabetes type 2, controlled Code(s): E11.9 - TYPE 2 DIABETES MELLITUS WITHOUT COMPLICATIONS Status: Chronic Qualifiers: Diabetes mellitus oysterman insulin use: without oysterman use Diabetes mellitus complication detail: with chronic kidney disease (3) HLD (hyperlipidemia) Code(s): E78.5 - HYPERLIPIDEMIA, UNSPECIFIED Status: Chronic (4) HTN (hypertension) Code(s): I10 - ESSENTIAL (PRIMARY) HYPERTENSION Status: Chronic Qualifiers: Hypertension type: renovascular hypertension Qualified Code(s): I15.0 - Renovascular hypertension (5) Osteoarthritis Code(s): M19.90 - UNSPECIFIED OSTEOARTHRITIS, UNSPECIFIED SITE Status: Acute Qualifiers: Osteoarthritis location: unspecified site Osteoarthritis type: unspecified Qualified Code(s): M19.90 - Unspecified osteoarthritis, unspecified site - Plan Plan: ESRD - Pt s/p placement of temporary HD access and graft placement - Had HD yesterday and will again today. - Dr Roberts currently following pt, appreciate further recommendations - CM has been consulted for outpt HD DM2 - continue home meds - ACHS accuchecks - SSI - low carb diet HTN - Generally well controlled - Continue home meds HLD - continue crestor OA - Generally controlled on tylenol Dispo: PT doing well, plan for likely dc in 24-48 hours pending outpt HD bed
[2017-08-15] MEDS: Tuberculin PPD 0.1 ML VIAL I-DERMAL SCH (10:41)
--- NOTE | 2017-08-15 11:32 | ADD-PRG ---
DATE OF SERVICE: 08/15/2017 This is an addendum to the note of Dr. Juan Pablo Romero. Ms. Haider is currently in dialysis, undergoing hemodialysis uneventfully. She has no new complaint s at this time. She will be undergoing increasing intervals of hemodialysis for the next several day s while outpatient is arranged. She is tolerating these well.
--- NOTE | 2017-08-15 13:06 | PDOC.CTH ---
Cardiology Progress Note - Objective Vital Signs Temp Pulse Resp BP Pulse Ox 08/15/17 08:00 97.8 F 92 16 125/76 97 08/15/17 04:00 98.4 F 73 16 124/84 98 Admit Weight 202 lb Weight 202 lb 4.8 oz 08/14/17 08/15/17 08/16/17 06:59 06:59 06:59 Intake Total 360 600 180 Output Total 200 Balance 360 400 180 - Physical Examination General/Neuro: alert & oriented x3, NAD Neck: no JVD present Lungs: CTA, unlabored respirations Heart: RRR Abdomen: NT/ND Extremities: other: (no edema) - Telemetry Telemetry Rhythm: NSR - Labs Result Diagrams: 08/14/17 05:45 08/14/17 05:45 - Assessment/Plan 1. ESRD 2. Chest pain 3. PVD. PLAN: - No active chest pain, - Recent non ischemic MPI but had reduced EF at 46%. - Currently she would like to wait until we do any further risk stratification with [facility]. - Will plan on follow up in 2 months in the office and will do leg studies see if her PVD is stable and decide how to proceed at that time with [facility] and possible [facility]FRO as well. - Will sign off. Please call with any questions.
--- NOTE | 2017-08-16 07:04 | PDOC.FM ---
- Subjective Subjective: 51 yo F w/new dx of ESRD s/p fistula placement. She feels well today with no specific complaints. Yesterday she had 2 hours or dialysis. There were no acute events over night. - Objective Vital Signs & Weight: Vital Signs (12 hours) Temp Pulse Resp BP Pulse Ox 08/15/17 21:31 98.1 F 80 16 132/78 96 08/15/17 20:00 98.4 F 78 18 98 Weight Admit Weight 91.626 kg Weight 91.762 kg I&O: 08/15/17 08/16/17 08/17/17 06:59 06:59 06:59 Intake Total 600 1200 Output Total 200 Balance 400 1200 Result Diagrams: 08/14/17 05:45 08/14/17 05:45 <Juan Pablo Romero - Last Filed: 08/16/17 07:00> - Objective Vital Signs & Weight: Vital Signs (12 hours) Temp Pulse Resp BP Pulse Ox 08/17/17 07:24 98.2 F 75 18 122/78 94 L 08/17/17 04:43 98.4 F 80 18 109/70 94 L Weight Admit Weight 91.626 kg Weight 91.762 kg I&O: 08/16/17 08/17/17 08/18/17 06:59 06:59 06:59 Intake Total 1200 1560 Balance 1200 1560 Result Diagrams: 08/17/17 08:31 08/14/17 05:45 <Nitesh Walters - Last Filed: 08/17/17 10:22> Phys Exam - Physical Examination Constitutional: NAD HEENT: moist MMs, sclera anicteric Neck: no JVD, full ROM Respiratory: clear to auscultation bilateral Cardiovascular: RRR, no significant murmur Gastrointestinal: soft, non-tender, no distention Musculoskeletal: no edema, pulses present Neurological: non-focal, moves all 4 limbs Psychiatric: normal affect, A&O x 3 Skin: no rash, normal turgor <Juan Pablo Romero - Last Filed: 08/16/17 07:00> Dx/Plan (2) End stage renal disease Code(s): N18.6 - END STAGE RENAL DISEASE Status: Acute (3) Diabetes type 2, controlled Code(s): E11.9 - TYPE 2 DIABETES MELLITUS WITHOUT COMPLICATIONS Status: Chronic QualifierTitle: Diabetes mellitus senior care insulin use: without superintendent container terminal use Diabetes mellitus complication detail: with chronic kidney disease (4) HLD (hyperlipidemia) Code(s): E78.5 - HYPERLIPIDEMIA, UNSPECIFIED Status: Chronic (5) HTN (hypertension) Code(s): I10 - ESSENTIAL (PRIMARY) HYPERTENSION Status: Chronic QualifierTitle: Hypertension type: renovascular hypertension Qualified Code(s): I15.0 - Renovascular hypertension (6) Osteoarthritis Code(s): M19.90 - UNSPECIFIED OSTEOARTHRITIS, UNSPECIFIED SITE Status: Acute QualifierTitle: Osteoarthritis location: unspecified site Osteoarthritis type: unspecified Qualified Code(s): M19.90 - Unspecified osteoarthritis, unspecified site - Plan Plan: ESRD - Pt s/p placement of temporary HD access and permanent graft placement - Nephro is increasing time of HD each day. 2 hours yesterday with plan for more today. - Dr Roberts currently following pt, appreciate further recommendations - CM has been consulted for outpt HD. Currently awaiting insurance approval DM2 - Accuchecks have been generally well controlled throughout hospitalization - continue home meds - ACHS accuchecks - SSI - low carb diet HTN - Generally well controlled - Continue home meds HLD - continue crestor OA - Generally controlled on tylenol Dispo: PT doing well, pt is medically ready to dc whenever she gets approved for an outpt HD bed <Juan Pablo Romero - Last Filed: 08/16/17 07:00> Attending Addendum - Attending Addendum Date/Time: 08/17/17 1021 I personally evaluated the patient and discussed the management with Dr. Romero on 08/16. I agree with the History, Examination, Assessment and Plan documented above with any addition or exceptions noted below. <Nitesh Walters - Last Filed: 08/17/17 10:22>
[2017-08-16] MEDS ORDERED: READ PPD TEST SITE PO SCH (09:00)
[2017-08-16] MEDS: Rosuvastatin 10 MG TAB PO SCH (09:00)
[2017-08-16] MEDS: Alogliptin 6.25 MG TAB PO SCH (09:00)
[2017-08-16] MEDS: Bisoprolol Fumarate/HCTZ 10 mg/6.25 mg Tablet PO SCH (09:00)
[2017-08-16] MEDS: traMADol HCl 50 MG TAB PO PRN (21:56)
[2017-08-17] MEDS: traMADol HCl 50 MG TAB PO PRN ×2 (05:56→20:44)
--- NOTE | 2017-08-17 07:14 | PDOC.FM ---
- Subjective Subjective: 51 yo F w/new dx of ESRD s/p fistula placement. New complaint this morning of medial elbow tenderness. This onset last night. She denies fever, chills, malaise, n/v, pain with ROM. 1L off at dialysis yesterday. - Objective MAR Reviewed: Yes Vital Signs & Weight: Vital Signs (12 hours) Temp Pulse Resp BP Pulse Ox 08/17/17 04:43 98.4 F 80 18 109/70 94 L 08/16/17 22:08 98.2 F 82 16 100 08/16/17 22:07 98.2 F 82 16 138/86 100 Weight Admit Weight 91.626 kg Weight 91.762 kg I&O: 08/16/17 08/17/17 08/18/17 06:59 06:59 06:59 Intake Total 1200 1560 Balance 1200 1560 Result Diagrams: 08/14/17 05:45 08/14/17 05:45 <Juan Pablo Romero - Last Filed: 08/17/17 07:12> - Objective Vital Signs & Weight: Vital Signs (12 hours) Temp Pulse Resp BP Pulse Ox 08/17/17 08:40 98.2 F 75 18 94 L 08/17/17 07:24 98.2 F 75 18 122/78 94 L 08/17/17 04:43 98.4 F 80 18 109/70 94 L Weight Admit Weight 91.626 kg Weight 91.762 kg I&O: 08/16/17 08/17/17 08/18/17 06:59 06:59 06:59 Intake Total 1200 1560 Balance 1200 1560 Result Diagrams: 08/17/17 08:31 08/14/17 05:45 <Nitesh Walters - Last Filed: 08/17/17 10:57> Phys Exam - Physical Examination HEENT: moist MMs, sclera anicteric Neck: no JVD, full ROM Respiratory: clear to auscultation bilateral Cardiovascular: RRR, no significant murmur, no rub Gastrointestinal: soft, non-tender, no distention, positive bowel sounds Musculoskeletal: no edema TTP over medial L epicondyle. No erythema. Area is warm to touch Incision over L ac fossa appears clean with no discharge, non TTP Neurological: non-focal, moves all 4 limbs Psychiatric: normal affect, A&O x 3 Skin: no rash, normal turgor <Juan Pablo Romero - Last Filed: 08/17/17 07:12> Dx/Plan (1) Elbow pain, left Code(s): M25.522 - PAIN IN LEFT ELBOW Status: Acute (2) End stage renal disease Code(s): N18.6 - END STAGE RENAL DISEASE Status: Acute (3) Diabetes type 2, controlled Code(s): E11.9 - TYPE 2 DIABETES MELLITUS WITHOUT COMPLICATIONS Status: Chronic QualifierTitle: Diabetes mellitus fdc insulin use: without studio sales associate use Diabetes mellitus complication detail: with chronic kidney disease (4) HLD (hyperlipidemia) Code(s): E78.5 - HYPERLIPIDEMIA, UNSPECIFIED Status: Chronic (5) HTN (hypertension) Code(s): I10 - ESSENTIAL (PRIMARY) HYPERTENSION Status: Chronic QualifierTitle: Hypertension type: renovascular hypertension Qualified Code(s): I15.0 - Renovascular hypertension (6) Osteoarthritis Code(s): M19.90 - UNSPECIFIED OSTEOARTHRITIS, UNSPECIFIED SITE Status: Acute QualifierTitle: Osteoarthritis location: unspecified site Osteoarthritis type: unspecified Qualified Code(s): M19.90 - Unspecified osteoarthritis, unspecified site - Plan Plan: Elbow pain - given location and warmth of area in addition to pain, there is some concern for infection at surgical site. - CBC is pending. - Will call gen surg for evaluation ESRD - Pt s/p placement of temporary HD access and permanent graft placement - Pt tolerating HD well, 1 L off yesterday. BP stable - Dr Roberts currently following pt, appreciate further recommendations - CM has been consulted for outpt HD. Currently awaiting insurance approval DM2 - Accuchecks have been generally well controlled throughout hospitalization - continue home meds - ACHS accuchecks - SSI - low carb diet HTN - Generally well controlled - Continue home meds HLD - continue crestor OA - Generally controlled on tylenol Dispo: stable, d/c when pt has HD chair in outpt setting. This will likely happen on Friday <Juan Pablo Romero - Last Filed: 08/17/17 07:12> Attending Addendum - Attending Addendum Date/Time: 08/17/17 8831 I personally evaluated the patient and discussed the management with Dr. Romero. I agree with the History, Examination, Assessment and Plan documented above with any addition or exceptions noted below. <Nitesh Walters - Last Filed: 08/17/17 10:57>
[2017-08-17] MEDS: Rosuvastatin 10 MG TAB PO SCH (08:40)
[2017-08-17] MEDS: Alogliptin 6.25 MG TAB PO SCH (08:40)
[2017-08-17] MEDS: Bisoprolol Fumarate/HCTZ 10 mg/6.25 mg Tablet PO SCH (08:40)
[2017-08-17 08:55] LABS: #Basophils 0.1 thou/uL (0.0-0.2); #Eosinphils 0.6 thou/uL (0.0-0.7); #Lymphocytes 1.7 thou/uL (1.20-3.40); #Monocytes 0.5 thou/uL (0.11-0.59); #Neutrophils 7.9 thou/uL (1.40-6.50); %Basophils 0.8 % (0.0-1.0); %Eosinophils 5.4 % (0.0-10.0); %Lymphocytes 15.7 % (21.0-51.0); %Monocytes 4.8 % (0.0-10.0); %Neutrophils 73.3 % (42.0-75.0); Hemoglobin 11.5 g/dL (12.0-16.0); Mean Corpuscular HGB CONC 32.1 g/dL (32.0-36.0); Mean Corpuscular Hemoglobin 26.5 pg (27.0-31.0); Mean Corpuscular Volume 82.8 fl (81.0-99.0); Mean Platelet Volume 9.4 fL (7.4-10.4); Platelet Count 158 thou/uL (130-400); RBC Distribution Width 13.4 % (11.5-14.5); Red Blood Cell (RBC) Count 4.34 mill/uL (4.20-5.40); White Blood Cell (WBC) Count 10.7 thou/uL (4.8-10.8)
--- NOTE | 2017-08-17 12:15 | PRG ---
DATE OF SERVICE: 08/17/2017 SUBJECTIVE: Ms. Haider is a 51-year-old woman who is 4 days status post left AV fi stula. I was asked by Dr. Juan Pablo Romero to evaluate the patient today with complaint of left elbow pa in. The patient is awake and alert. She complains of pain in her left olecranon process. She descr ibes it as "funny bone." She is able to move all her fingers. There is minimum swelling in her left forearm. The AV fistula incision scar is intact, clean, and dry. There is no flatulence. There is palpable thrill. There is no clinical evidence of infection. I have reassured the patient. Provid ing her with ice pack to her left elbow. There is no acute surgical indication for this patient at t his time.
--- NOTE | 2017-08-18 08:29 | PDOC.FM ---
- Subjective Subjective: 51 yo F here with new ESRD. s/p fistula placement POD 5. Pt complains of continued medial elbow pain. Denies fever, chills, n/v. No new symptoms, no acute events over night. Pt was seen by gen surg yesterday and they are not concerned for infection - Objective Vital Signs & Weight: Vital Signs (12 hours) Temp Pulse Resp BP Pulse Ox 08/18/17 07:23 98.2 F 72 18 111/74 94 L Weight Admit Weight 91.626 kg Weight 91.762 kg I&O: 08/17/17 08/18/17 08/19/17 06:59 06:59 06:59 Intake Total 1560 1030 Balance 1560 1030 Result Diagrams: 08/17/17 08:31 08/14/17 05:45 <Juan Pablo Romero - Last Filed: 08/18/17 08:27> - Objective Vital Signs & Weight: Weight Admit Weight 91.626 kg Weight 91.762 kg I&O: 08/18/17 08/19/17 08/20/17 06:59 06:59 06:59 Intake Total 1030 Balance 1030 Result Diagrams: 08/18/17 08:50 08/18/17 08:50 <Hoa Tse - Last Filed: 08/19/17 08:01> Phys Exam - Physical Examination Constitutional: NAD HEENT: moist MMs, sclera anicteric Neck: no JVD, full ROM Respiratory: clear to auscultation bilateral Cardiovascular: RRR, no significant murmur, no rub Gastrointestinal: soft, non-tender, no distention, positive bowel sounds Musculoskeletal: no edema Neurological: non-focal, moves all 4 limbs Psychiatric: normal affect, A&O x 3 Skin: no rash, normal turgor <Juan Pablo Romero - Last Filed: 08/18/17 08:27> Dx/Plan (1) Elbow pain, left Code(s): M25.522 - PAIN IN LEFT ELBOW Status: Acute (2) End stage renal disease Code(s): N18.6 - END STAGE RENAL DISEASE Status: Acute (3) Diabetes type 2, controlled Code(s): E11.9 - TYPE 2 DIABETES MELLITUS WITHOUT COMPLICATIONS Status: Chronic QualifierTitle: Diabetes mellitus terminal supervisor insulin use: without terminal supervisor use Diabetes mellitus complication detail: with chronic kidney disease (4) HLD (hyperlipidemia) Code(s): E78.5 - HYPERLIPIDEMIA, UNSPECIFIED Status: Chronic (5) HTN (hypertension) Code(s): I10 - ESSENTIAL (PRIMARY) HYPERTENSION Status: Chronic QualifierTitle: Hypertension type: renovascular hypertension Qualified Code(s): I15.0 - Renovascular hypertension (6) Osteoarthritis Code(s): M19.90 - UNSPECIFIED OSTEOARTHRITIS, UNSPECIFIED SITE Status: Acute QualifierTitle: Osteoarthritis location: unspecified site Osteoarthritis type: unspecified Qualified Code(s): M19.90 - Unspecified osteoarthritis, unspecified site - Plan Plan: Elbow pain - most likely post surgical changes. Tylenol for pain ESRD - Pt s/p placement of temporary HD access and permanent graft placement - Pt tolerating HD well, no moving to MWF schedule - Dr Roberts currently following pt, appreciate further recommendations - CM has been consulted for outpt HD. Currently awaiting insurance approval, hopefully today DM2 - Well controlled - continue home meds - ACHS accuchecks - SSI - low carb diet HTN - Generally well controlled - Continue home meds HLD - continue crestor OA - Generally controlled on tylenol Dispo: stable, d/c when pt has HD chair in outpt setting. This will likely happen today <Juan Pablo Romero - Last Filed: 08/18/17 08:27> Attending Addendum - Attending Addendum Date/Time: 08/19/17 0965 I personally evaluated the patient and discussed the management with Dr. Lema and Dr. Sims I agree with the History, Examination, Assessment and Plan documented above with any addition or exceptions noted below. 51 yo female with ESRD admitted for HD. Now improved. New ESRD with initiation of HD this stay. Awaiting approval for home routine outpatient HD. Patient otherwise stable and ready for d/c. BonnieMD <Hoa Tse - Last Filed: 08/19/17 08:01>
[2017-08-18 08:55] LABS: #Basophils 0.1 thou/uL (0.0-0.2); #Eosinphils 0.5 thou/uL (0.0-0.7); #Monocytes 0.7 thou/uL (0.11-0.59); #Neutrophils 5.2 thou/uL (1.40-6.50); %Eosinophils 6.4 % (0.0-10.0); %Lymphocytes 23.8 % (21.0-51.0); %Monocytes 8.6 % (0.0-10.0); %Neutrophils 60.2 % (42.0-75.0); Hemoglobin 11.5 g/dL (12.0-16.0); Mean Corpuscular HGB CONC 32.5 g/dL (32.0-36.0); Mean Corpuscular Hemoglobin 27.1 pg (27.0-31.0); Mean Corpuscular Volume 83.4 fl (81.0-99.0); Mean Platelet Volume 9.9 fL (7.4-10.4); Platelet Count 150 thou/uL (130-400); RBC Distribution Width 13.4 % (11.5-14.5); Red Blood Cell (RBC) Count 4.26 mill/uL (4.20-5.40); White Blood Cell (WBC) Count 8.6 thou/uL (4.8-10.8)
[2017-08-18 09:24] LABS: Albumin 3.8 g/dL (3.5-5.0); Anion Gap 14 mmol/L (10-20); BUN (Urea Nitrogen) 35 mg/dL (9.8-20.1); BUN/Creatinine Ratio 7.09; Calc. Creatinine Clearance 19 mL/min (70-130); Calcium 9.3 mg/dL (7.8-10.44); Carbon Dioxide 28 mmol/L (22-29); Chloride 99 mmol/L (98-107); Estimated GFR-MDRD 11; Glucose 108 mg/dL (70-105); Phosphorus 4.7 mg/dL (2.3-4.7); Potassium 3.8 mmol/L (3.5-5.1); Sodium 137 mmol/L (136-145)
[2017-08-18] MEDS: Bisoprolol Fumarate/HCTZ 10 mg/6.25 mg Tablet PO SCH (12:56)
[2017-08-18] MEDS: Rosuvastatin 10 MG TAB PO SCH (12:58)
[2017-08-18] MEDS: Alogliptin 6.25 MG TAB PO SCH (12:58)
[2017-08-18 13:13] VITALS: BP 120/70; TEMP 98.7
--- NOTE | 2017-08-19 04:21 | DIS-2 ---
DATE OF ADMISSION: 08/13/2017 DATE OF DISCHARGE: 08/18/2017 RESIDENT: Juan Pablo Romero D.O. ADMITTING ATTENDING: Ez Shea M.D. DISCHARGE ATTENDING: Hoa Tse M.D. CONSULTS: Dr. Roberts, Nephrology; Dr. Carreon, Cardiology; and Dr. Corrigan, General Surgery. PROCEDURES: Right IJ dialysis catheter, left IJ central line and left antecubital fossa, AV fistula, all placed on 08/13/2017. Hemodialysis on 08/14/2017, 08/15/2017, 08/16/2017, and 08/18/2017. PRIMARY DIAGNOSIS: End-stage renal disease. SECONDARY DIAGNOSES: Hypertension, hyperlipidemia, type 2 diabetes. DISCHARGE MEDICATIONS: Gabapentin 300 p.o. daily, bisoprolol fumarate/ hydrochlorothiazide 10/6.25 m g one tab p.o. daily, Januvia 25 mg p.o. daily and Crestor 10 mg p.o. daily. DISCONTINUED MEDICATIONS: None. HISTORY OF PRESENT ILLNESS: This is a 51-year-old female with end-stage renal disease who was diagno sed and made outpatient setting by her primary market research coordinator, Dr. Roberts. The patient was admitted to be started on dialysis and have a fistula placed. This happened on the first day of admission by Dr Bright Corrigan. Throughout the course of hospitalization, the patient had well controlled blood sugars and well controlled blood pressures. After placement of the fistula and temporary access via dialysis c atheter, she was started on dialysis, one hour on the first day, increasing daily about 1 hour until she got 4 hours of dialysis on 08/16/2017 then she was started on her normal or what will be her norm al dialysis schedule Friday, Friday, Friday. Note at one point during the hospitalization, the patient complained of new onset tenderness and warm th in the medial aspect of her left elbow. This was seen and evaluated by General Surgery, determine d to be likely a post-surgical change. Otherwise, the patient's hospitalization was uneventful. DISPOSITION: Stable. DISCHARGE INSTRUCTIONS: 1. Location: Home. 2. Diet: Renal, low protein. 3. Activity: ad ifeoma. 4. Followup: Follow up with Dr. Corrigan in [address] Roberts previously scheduled and with PCP within 2 weeks.
== END 2017-08-18 13:35 | disposition home or self-care (01) | DRG 673 ==
LOC: ERS 11:07 → T4-A 13:57
PROVIDERS: ADMIT Family Medicine; ATTEND Family Medicine
PROC: 05HN33Z Insertion of Infusion Device into Left Internal Jugular Vein, Percutaneous Approach (ICD-10-PCS; 2017-08-13)
PROC: B514ZZA Fluoroscopy of Left Jugular Veins, Guidance (ICD-10-PCS; 2017-08-13)
PROC: 5A1D70Z Performance of Urinary Filtration, Intermittent, Less than 6 Hours Per Day (ICD-10-PCS; 2017-08-13)
PROC: 031C0ZF Bypass Left Radial Artery to Lower Arm Vein, Open Approach (ICD-10-PCS; principal; 2017-08-14)
DX: I12.0 Hypertensive chronic kidney disease with stage 5 chronic kidney disease or end stage renal disease (principal); N18.6 End stage renal disease; E87.5 Hyperkalemia; E11.22 Type 2 diabetes mellitus with diabetic chronic kidney disease; Z79.899 Other long term (current) drug therapy; Z99.2 Dependence on renal dialysis; Z88.5 Allergy status to narcotic agent; Z88.8 Allergy status to other drugs, medicaments and biological substances; Z87.891 Personal history of nicotine dependence; E66.01 Morbid (severe) obesity due to excess calories; Z68.32 Body mass index [BMI] 32.0-32.9, adult; E88.81 Metabolic syndrome and other insulin resistance; J30.2 Other seasonal allergic rhinitis; M19.90 Unspecified osteoarthritis, unspecified site
CPT/HCPCS: 36415; 36416; 71045; 80048; 80053; 80069; 81003; 81015; 83690; 84703; 85025; 86580; 86704; 86706; 86803; 87340; 87389; 90935; 93005; 93010; 93970; 99285; A4216; C1752; C1769; G0257; G0365; G8978-GP-CJ; G8979-GP-CJ; G8980-GP-CJ; G8987-GO-CI; G8988-GO-CI; G8989-GO-CI; J0670; J1644; J2001; J2250; J2405; J2704; J2720; J3010; Q0162; Q9967

== ENCOUNTER 2017-09-04 10:33 | Outpatient (CLI) | payer OTHER ==
[2017-09-04 12:13] LABS: #Basophils 0.1 thou/uL (0.0-0.2); #Eosinphils 0.3 thou/uL (0.0-0.7); #Lymphocytes 1.7 thou/uL (1.20-3.40); #Monocytes 0.5 thou/uL (0.11-0.59); #Neutrophils 6.6 thou/uL (1.40-6.50); %Basophils 0.7 % (0.0-1.0); %Lymphocytes 18.2 % (21.0-51.0); %Monocytes 5.6 % (0.0-10.0); %Neutrophils 72.5 % (42.0-75.0); Hemoglobin 12.3 g/dL (12.0-16.0); Mean Corpuscular HGB CONC 31.3 g/dL (32.0-36.0); Mean Corpuscular Hemoglobin 26.9 pg (27.0-31.0); Mean Platelet Volume 9.5 fL (7.4-10.4); Platelet Count 184 thou/uL (130-400); RBC Distribution Width 13.8 % (11.5-14.5); Red Blood Cell (RBC) Count 4.58 mill/uL (4.20-5.40); White Blood Cell (WBC) Count 9.2 thou/uL (4.8-10.8)
[2017-09-04 12:31] LABS: Anion Gap 17 mmol/L (10-20); BUN (Urea Nitrogen) 24 mg/dL (9.8-20.1); Calc. Creatinine Clearance 0 mL/min (70-130); Calcium 9.3 mg/dL (7.8-10.44); Carbon Dioxide 25 mmol/L (22-29); Chloride 101 mmol/L (98-107); Estimated GFR-MDRD 10; Glucose 140 mg/dL (70-105); Potassium 3.5 mmol/L (3.5-5.1); Sodium 139 mmol/L (136-145)
== END 2017-09-04 10:34 | disposition home or self-care (01) ==
LOC: LABBT 10:33
PROVIDERS: ATTEND Specialist
DX: Z01.818 Encounter for other preprocedural examination (principal); N18.6 End stage renal disease
CPT/HCPCS: 80048; 85025

== ENCOUNTER 2017-09-12 05:40 | Day surgery (SDC) | payer OTHER ==
--- NOTE | 2017-09-02 11:04 | HP ---
HISTORY OF PRESENT ILLNESS: Jocelyn Haider is a 51-year-old black female with diabetes mellitus, h ypertension, progressed to end-stage renal disease on dialysis Friday, Friday, and Friday 1:30 p.m . at [facility]. She is followed by Dr. Dagoberto Roberts. I saw her in 08/2017. On 08/13, she had he modialysis catheter, 08/14 she had a left arm primary fistula, proximal radial artery outflow cephali c vein upper arm calibrated to 4 mm coronary dilator. A small communication branch to the basilic ve in noted, retrograde antecubital vein used for inflow to the proximal radial artery. Patient states that she was initially noted to have a thrill, but this has not been checked in some time. She has n ot been exercising arm as she states that nobody has told her to. Ultrasound vein mapping both arms preoperatively revealed veins are small; cephalic vein right arm, both cephalic and basilic vein left arm, basilic vein is slightly larger. ALLERGIES: CODEINE, pruritus. TOBACCO: Cessation several years ago. ALCOHOL: None. MEDICATIONS: Januvia, Crestor, gabapentin, and bisoprolol. PAST SURGICAL HISTORY: Tubal ligation, tube thoracostomies in [address], 08/14/2017 left arm f istula as described. PAST MEDICAL HISTORY: Chronic end-stage renal disease on dialysis, type 2 diabetes mellitus, hyperte nsion, metabolic syndrome, obesity. PHYSICAL EXAMINATION: VITAL SIGNS: 198 pounds, 5 foot 6 inches, 119/68, 74, 95 degrees. HEAD, EYES, EARS, NOSE, AND THROAT: Unremarkable. LUNGS: Clear to auscultation. CARDIAC: Regular rate and rhythm without murmur or gallop. ABDOMEN: Soft, nontender. EXTREMITIES: Left arm fistula thrombosed, surgical wound well healed. Extremities are unremarkable otherwise. ASSESSMENT AND PLAN: Thrombosed left arm fistula, end-stage renal disease on maintenance dialysis [place] , Friday, and Friday 1:30 p.m. [facility]. Followed by Dr. Dagoberto Roberts. Plan placement of a right arm fistula, possible prosthetic graft. She understands risks of infection, bleeding, reope ration and consents.
[2017-09-04 11:13] VITALS: BMI 32.1
[2017-09-12] MEDS ORDERED: Midazolam HCl 2 mg/2 ml Vial ONE ×2 (06:28→07:02)
[2017-09-12] MEDS ORDERED: Fentanyl 100 MCG/2 ML VIAL ONE ×3 (06:28→08:59)
[2017-09-12] MEDS ORDERED: CEFAZOLIN/Water 2 GM/20 ML SYRINGE ONE (07:04)
[2017-09-12] MEDS ORDERED: Sodium Chloride 0.9% 0 ML ONE (07:05)
[2017-09-12] MEDS ORDERED: Heparin 5,000 UNITS/ML VIAL ONE (07:05)
[2017-09-12] MEDS ORDERED: Heparin 10,000 UNITS/1 ML VIAL ONE (07:05)
[2017-09-12] MEDS ORDERED: Bupivacaine HCl 0.5%/Epinephrine 1:200,000/PF 30 ml Vial ONE (07:05)
[2017-09-12] MEDS ORDERED: Protamine Sulfate 50 MG/5 ML VIAL ONE (07:05)
[2017-09-12] MEDS ORDERED: Lidocaine 2% 10 ML INJ ONE ×2 (07:05→08:44)
[2017-09-12] MEDS ORDERED: Sodium Chloride 0.9% 100 ML ONE (07:30)
[2017-09-12] MEDS ORDERED: CEFAZOLIN 1 GM VIAL ONE (07:30)
[2017-09-12] MEDS ORDERED: PROPOFOL 40 ML ONE (09:00)
--- NOTE | 2017-09-12 10:09 | OP ---
DATE OF PROCEDURE: 09/12/2017 PREOPERATIVE DIAGNOSES: End-stage renal disease, morbid obesity, thrombosed primary fistula, left ar m. POSTOPERATIVE DIAGNOSES: End-stage renal disease, morbid obesity, thrombosed primary fistula, left a rm. Venous inadequacy right arm for a ak chin vein fistula. PROCEDURE: Exploration antecubital veins, right arm finding veins to be fibrotic and inadequate. A right upper extremity tapered PTFE graft 4T07 brachial artery axillary vein, noting axillary vein to be of excellent caliber and brachial artery to be of good quality. SURGEON: Dr. Dagoberto Corrigan ANESTHESIA: Regional anesthesia, TIVA, local 0.5% Marcaine with epinephrine, 30 mL, mixed with 2% Xy locaine, 10 mL. PROCEDURE: The patient was taken to the operating room where under regional anesthesia, right upper extremity was prepared with ChloraPrep, draped in routine fashion. Incision made in the proximal vol ar forearm below the antecubital fossa, carried through skin and subcutaneous tissue. Antecubital ve in appeared to initially be adequate, but as it was evaluated, the cephalic vein outflow was fibrotic , basilic vein did not exist. Subcutaneous tissues approximated with 3-0 Monocryl, skin with subderm al 4-0 Monocryl and DermaGlue applied. Incision made in the right axilla and in the right arm just above the antecubital fossa longitudinall y, carried down the skin and subcutaneous tissue, dissected free the axillary vein, brachial artery, respectively. ____ Silastic vessel loops. Patience-Wick tunneler used to create a tunnel between the t wo incisions over the anterior arm tunneling the 4T07 tapered PTFE graft between the two incisions, p lacing the 4 mm end near the arterial brachial artery inflow above the antecubital fossa. The patien t was given 6000 units heparin intravenously. After adequate circulation time, the brachial artery w as clamped proximally and distally and longitudinal arteriotomy made sharply and elongated with Rivera scissors for a 2.5 cm anastomosis and the 4 mm end of the graft tailored for a Cobra head anastomosi s created with continuous suture of 6-0 Prolene, releasing the vascular clamps noting good flow in th e graft, good thrill in the graft with a vascular clamp, placing a gauze pressure pad in this area. Attention was then turned to the axilla where the axillary vein had been dissected free and controlle d proximally, Silastic Rivera loops and longitudinal venotomy made sharply and elongated with Rivera sc issors for a 3.5 cm anastomosis and 7 mm graft tailored for a Cobra head anastomosis and end graft to side axillary vein anastomosis created with continuous suture of 6-0 Prolene, completing the anastom osis, releasing the arterial inflow noting good hemostasis as the venous control was released and the re was good flow in the fistula. Surgicel applied, 25 mg protamine administered intravenously by Gisela roe. Good hemostasis noted. Subcutaneous tissues approximated with 3-0 Monocryl, skin with subd ermal 4-0 Monocryl and DermaGlue and sterile dressings applied. The patient tolerated the procedure well.
[2017-09-12] MEDS ORDERED: Heparin 10,000 UNITS/ 10 ML VIAL ONE (10:41)
== END 2017-09-12 11:10 | disposition home or self-care (01) ==
LOC: SDC 05:40
PROVIDERS: ATTEND Specialist
PROC: 03170JD Bypass Right Brachial Artery to Upper Arm Vein with Synthetic Substitute, Open Approach (ICD-10-PCS; principal; 2017-09-12)
DX: T82.868A Thrombosis due to vascular prosthetic devices, implants and grafts, initial encounter (principal); I12.0 Hypertensive chronic kidney disease with stage 5 chronic kidney disease or end stage renal disease; E11.22 Type 2 diabetes mellitus with diabetic chronic kidney disease; N18.6 End stage renal disease; E66.01 Morbid (severe) obesity due to excess calories; Z68.32 Body mass index [BMI] 32.0-32.9, adult; Z87.891 Personal history of nicotine dependence; Z79.84 Long term (current) use of oral hypoglycemic drugs; Z79.899 Other long term (current) drug therapy; Z88.5 Allergy status to narcotic agent; Z99.2 Dependence on renal dialysis
CPT/HCPCS: A4216; C1769; J0670; J0690; J1644; J2250; J2704; J2720; J3010; J7050; L8670

== ENCOUNTER 2017-11-06 09:52 | Observation (INO) | payer MEDICARE, OTHER ==
[2017-11-06] MEDS ORDERED: Nitroglycerin 2% Ointment 1 INCH/1 GM Packet ONE (10:26)
[2017-11-06] MEDS ORDERED: Aspirin 325 MG TAB ONE (10:26)
[2017-11-06 10:28] LABS: #Basophils 0.1 thou/uL (0.0-0.2); #Eosinphils 0.3 thou/uL (0.0-0.7); #Lymphocytes 1.9 thou/uL (1.20-3.40); #Monocytes 0.5 thou/uL (0.11-0.59); #Neutrophils 5.2 thou/uL (1.40-6.50); %Basophils 0.6 % (0.0-1.0); %Eosinophils 4.2 % (0.0-10.0); %Lymphocytes 23.5 % (21.0-51.0); %Monocytes 5.7 % (0.0-10.0); Hemoglobin 13.2 g/dL (12.0-16.0); Mean Corpuscular HGB CONC 32.5 g/dL (32.0-36.0); Mean Corpuscular Hemoglobin 29.3 pg (27.0-31.0); Mean Corpuscular Volume 90.1 fL (78.0-98.0); Mean Platelet Volume 9.7 fL (7.4-10.4); Platelet Count 141 thou/uL (130-400); RBC Distribution Width 14.9 % (11.5-14.5); White Blood Cell (WBC) Count 7.9 thou/uL (4.8-10.8)
[2017-11-06 10:51] LABS: ALT (SGPT) 26 U/L (8-55); AST (SGOT) 23 U/L (5-34); Albumin 4.5 g/dL (3.5-5.0); Alkaline Phosphatase 92 U/L (40-150); Anion Gap 18 mmol/L (10-20); BUN (Urea Nitrogen) 31 mg/dL (9.8-20.1); Bilirubin, Total 0.5 mg/dL (0.2-1.2); Calc. Creatinine Clearance 0 mL/min (70-130); Calcium 9.5 mg/dL (7.8-10.44); Carbon Dioxide 24 mmol/L (22-29); Chloride 100 mmol/L (98-107); Estimated GFR-MDRD 9; Globulin 4.4 g/dL (2.4-3.5); Glucose 127 mg/dL (70-105); Potassium 3.6 mmol/L (3.5-5.1); Protein, Total 8.9 g/dL (6.0-8.3); Sodium 138 mmol/L (136-145)
[2017-11-06 10:55] LABS: CKMB 1.1 ng/mL (0-6.6); Troponin I Less than 0.010 ng/mL (< 0.028)
--- NOTE | 2017-11-06 11:56 | PDOC.FPRHP ---
- History of Present Illness Chief Complaint: chest pain History of Present Illness: 52yoF with pmh of ESRD on dialysis presents for CP. onset yesterday, pain is substernal and R side of chest deep and of crushing pressure quality, rated 8/ 10. Related sympoms of jaw pain and nausea, and diaphoresis. Pt was on dialysis when pain first started. Pt reports pain is relieved by rest and by nitro in the ED. Pt does not know exacerbating factors. Pt went to sleep last night with cp and woke up this morning with pain resolved but continued jaw pain. After calling clinic and being instructed to go to ED she came here. Pt has new insurance and wishes to have cath now. She currently has no cp. Pt reports a history of angina and that she has seen Dr. Puri before and he had recommended a cath but that she refused for financial reasons. reports orthopnea and paroxysmal nocturnal dyspnea. ED Course: EKG shows normal sinus rhythm, Rate (beats per minute): 74, Conduction normal, ST segments normal, T waves, T wave abnormality--consider inferior ischemia, T wave abnormality--consider anterolateral ischemia, [place] normal, Other findings include:, possible left atrial enlargement. CXR (-) given: asa, nitro - Allergies/Adverse Reactions Allergies Allergy/AdvReac Type Severity Reaction Status Date / Time hydrocodone Allergy Itching Verified 09/04/17 11:13 - Home Medications Medication Instructions Recorded Confirmed Type Gabapentin 300 mg PO DAILY PRN 12/08/12 09/04/17 History Bisoprolol Fumarate/HCTZ 1 tablet PO DAILY 10/18/13 09/04/17 History sitaGLIPtin Phosphate [Januvia] 25 mg PO DAILY 07/11/17 09/04/17 History Rosuvastatin [Crestor] 10 mg PO DAILY #30 tab 07/12/17 09/04/17 Rx Esomeprazole Magnesium [Nexium] 20 mg PO DAILY 09/04/17 09/04/17 History - History PMHx: ESRD on dialysis, DM, HTN, HLD PSHx: tubal ligation, L arm fistula for dialysis, R arm graft for dialysis FHx: grandmother: [place], mother: CVA and CAD, father: lung cancer Social: denies alcohol, denies drugs, former smoker 30 pack year hx, last cigarette 4 years ago - Review of Systems General: denies: fever/chills, fatigue ENT: denies: nasal congestion, rhinorrhea Respiratory: reports: shortness of breath. denies: cough Cardiovascular: reports: paroxysmal nocturnal dyspnea, orthopnea. denies: chest pain, palpitation Gastrointestinal: reports: nausea. denies: vomiting Skin: denies: rashes, lesions Neurological: denies: syncope, seizure - Vital signs BP: [135/64] HR: [92] RR: [16] Tmax: [98.7] Pox: [95]% on [RA] Wt: [90] - Physical Exam Constitutional: NAD, awake, alert and oriented HEENT: normocephalic and atraumatic, EOMI, conjunctiva clear, MMM Neck: trachea midline -Chest: pain reproducible on moderate pressure to sternum Heart: RRR, normal S1/S2, pulses present Lungs: CTAB, no respiratory distress, other (diminished breath sounds) Abdomen: soft, non-tender Musculoskeletal: normal structure, normal tone Heme/Lymphatic: no purpura, no petechia Psychiatric: normal mood and affect, good judgment and insight FMR H&P: Results - Labs Result Diagrams: 11/06/17 10:16 11/06/17 10:16 Lab results: WBC 7.9 thou/uL (4.8-10.8) 11/06/17 10:16 Hgb 13.2 g/dL (12.0-16.0) 11/06/17 10:16 Hct 40.6 % (36.0-47.0) 11/06/17 10:16 MCV 90.1 fL (78.0-98.0) 11/06/17 10:16 Plt Count 141 thou/uL (130-400) 11/06/17 10:16 Neutrophils % 66.0 % (42.0-75.0) 11/06/17 10:16 Sodium 138 mmol/L (136-145) 11/06/17 10:16 Potassium 3.6 mmol/L (3.5-5.1) 11/06/17 10:16 Chloride 100 mmol/L (98-107) 11/06/17 10:16 Carbon Dioxide 24 mmol/L (22-29) 11/06/17 10:16 BUN 31 mg/dL (9.8-20.1) H 11/06/17 10:16 Creatinine 5.77 mg/dL (0.6-1.1) H 11/06/17 10:16 Glucose 127 mg/dL (70-105) H 11/06/17 10:16 Calcium 9.5 mg/dL (7.8-10.44) 11/06/17 10:16 Total Bilirubin 0.5 mg/dL (0.2-1.2) 11/06/17 10:16 AST 23 U/L (5-34) 11/06/17 10:16 ALT 26 U/L (8-55) 11/06/17 10:16 Alkaline Phosphatase 92 U/L (40-150) 11/06/17 10:16 CK-MB (CK-2) 1.1 ng/mL (0-6.6) 11/06/17 10:16 Serum Total Protein 8.9 g/dL (6.0-8.3) H 11/06/17 10:16 Albumin 4.5 g/dL (3.5-5.0) 11/06/17 10:16 FMR H&P: A/P - Problem List (1) Chest pain in adult Current Visit: Yes Status: Acute Code(s): R07.9 - CHEST PAIN, UNSPECIFIED (2) Diabetes Current Visit: Yes Status: Acute Code(s): E11.9 - TYPE 2 DIABETES MELLITUS WITHOUT COMPLICATIONS (3) HLD (hyperlipidemia) Current Visit: No Status: Chronic Code(s): E78.5 - HYPERLIPIDEMIA, UNSPECIFIED (4) HTN (hypertension) Current Visit: No Status: Chronic Code(s): I10 - ESSENTIAL (PRIMARY) HYPERTENSION Qualifiers: Hypertension type: renovascular hypertension Qualified Code(s): I15.0 - Renovascular hypertension - Plan 52 yr old female with typical chest pain Stable angina A-trop negative x 1, cont to trend, EKG no st elevation or acute changes, EF 46 % in 07/2017. s/p 325 mg ASA in ER and nitro patch P- consult cardiology, Dr. Puri, appreciate recs - check TSH and FLP if not recently in clinic records HLD -home meds ESRD on HD A- does not appear fluid overloaded, had dialysis yesterday P- notify Dr. Kong DM II -cont home vipin Wagoner accucheck -SSI -last A1C in hospital (05/2017) is 6.3 HTN -home meds GERD -reports home nexium use -ppx famotidine FMR H&P: Upper Level - Pertinent history 52 yr odl female with PMH of ESRD on DM, HLD, HTN, DM II who presents for chest pain and diaphoresis. Patient states she had exertional CP that started yesterday during dialysis. It eventually improved but she had residual sweating ever since. States she has sweat yestrday evening and this morning. This morning she went up some stairs and had CP. Associated iwth radiation to her left jaw. CP is midsternal. It eased up after she got nitro. She reports a sharp pain into her jaw. She has nausea with the pain but also reports frequent nausea. She has a 30 pack year smoking hx and stopped 5 years ago. Her mom had "heart disease" as well as a grandmother with "heart attacks." She had a stress in 2017 that showed global hypokenesis with an EF of 46%. Notes indicate that a cath was recommended but patient declined due to financial reasons and insurance. Apparently her insurance was not accepted by rn occupational office. She now has different insurance and would like to proceed with cath if recommended. - Pertinent findings EKG: normal sinus rhythm, T wave inversion in lateral leads, no ST changes. Gen: NAD, resting comfortably Neck: no carotid bruit to auscultation Heart: RRR, no M/R/G Lungs: no wheezes, rhales, rhonchi ext: 1+ bilateral post tibial pulses Neuro: strength 5/5 in BLE/BUE, no focal deficits noted. Trop: negative CXR- NAD - Plan Date/Time: 11/06/17 1153 I, [Елена Mccartney], have evaluated this patient and agree with findings/plan as outlined by editing intern resident. Pertinent changes/additions are listed here. 52 yr old female with typical chest pain Stable angina -trop negative x 1, cont to trend -EKG without acute changes, repeat for new onset CP -last NM stress with EF 46% and global hypokinesis in 07/2017 -consult cardiology, Dr. Puri, appreciate recs -s/p 325 mg ASA in ER and nitro patch -will check clinic records and check TSH and FLP if not recently HLD -cont home meds -FLP if not recently done in clinic ESRD on HD -Will need to notify Dr. Kong but she had dialysis yesterday -no apparent fluid overload DM II -cont home vipin [place]er accucheck -SSI -last A1C in hospital (05/2017) is 6.3 HTN - cont home meds bisoprolol/HCTZ PAD GERD -reports home nexium use Attending Addendum - Attending Addendum Date/Time: 11/06/171913 I personally evaluated the patient and discussed the management with Dr. Giang I agree with the History, Examination, Assessment and Plan documented above with any addition or exceptions noted below- Briefly this is a 52 yo BF with a h /o DM, HTN, HLD, ESRD on HD who presented with complaint of substernal chest pain radiating to the right chest and jaw. States that the pain had occurred yesterday while at dialysis. It then improved and she went home but had another episode last night and again this morning and so decided to seek additional care. States that the pain was also associated with diaphoresis. Denies any N/V , SOB. PMH/PSH/Meds/All reviewed and agree with resident's documentation. Afebrile BP 130/60 T98.3 P70 95%RA Exam repeated by me and agree with resident's findings. Labs: H/H=13.2/40.6, Wf=051, K=3.6, Ac=678, CO2=24, BUN/Cr = 31/5.77, Xgeb=856, AST/ALT=23/36, troponin I< 0.010 x2, EKG- NSR, no ST changes. A/P: 1) Chest pain - continue serial cardiac enzymes. Has had prior episodes of chest pain with negative stress test. Seen by cardiology in August and recommended to follow-up for consideration of possible LHC. Will consult cardiology in AM for further recommendations. 2) DM- monitor accuchecks. 3) ESRD - will notify nephrology to arrange dialysis.
--- NOTE | 2017-11-06 11:59 | RAD ---
CHEST 1 VIEW: Date: 11/06/17 HISTORY: Chest pain. COMPARISON: Chest radiograph dated 08/13/17. FINDINGS: The lungs are clear. No pneumothorax or effusion. Cardiac silhouette and mediastinal contours within normal limits. IMPRESSION: No acute intrathoracic abnormality. POS: TPC
[2017-11-06] MEDS ORDERED: Gabapentin 100 MG CAP PO PRN (14:28)
[2017-11-06 15:10] VITALS: BMI 31.4
[2017-11-06] MEDS ORDERED: Ondansetron HCl/PF 4 MG/2 ML Vial IVP PRN (15:10)
[2017-11-06] MEDS ORDERED: Dextrose 5% in Water 1,000 ML IV PRN (15:10)
[2017-11-06] MEDS ORDERED: Insulin Regular 300 UNITS/3 ML VIAL SC PRN (15:10)
[2017-11-06] MEDS ORDERED: Dextrose 50% Abboject 50 ML SYRINGE SLOW IVP PRN (15:10)
[2017-11-06] MEDS ORDERED: Acetaminophen 325 MG TAB PO PRN (15:10)
[2017-11-06 16:48] LABS: Troponin I Less than 0.010 ng/mL (< 0.028)
[2017-11-06] MEDS ORDERED: Heparin 10,000 UNITS/ 10 ML VIAL ONE (17:24)
[2017-11-06] MEDS ORDERED: Communication Order-Pharmacy FS SCH (18:30)
[2017-11-06] MEDS ORDERED: Nitroglycerin 0.4 MG TAB (25 Tab Bottle) SL PRN (18:33)
[2017-11-06] MEDS: Famotidine/PF 20 mg/2ml Vial SLOW IVP SCH (21:14)
--- NOTE | 2017-11-07 00:14 | CON ---
DATE OF CONSULTATION: 11/06/2017 CARDIOLOGY CONSULTATION REASON FOR CONSULTATION: Chest pressure at rest. PRIMARY LEARNING CONSULTANT: Dr. Colten Champagne. HISTORY OF PRESENT ILLNESS: Ms. Haider is a very pleasant 52-year-old woman previously seen and wilmer luated by Dr. Champagne. She has developed peripheral vascular disease and also progressive renal ins ufficiency and finally renal failure requiring dialysis. She had an episode of severe chest pain and pressure going across her chest today is intense, it occurred during dialysis. She can be brought h er to the emergency room for further evaluation. She has been admitted for further evaluation and pr obable cardiac catheterization. PAST MEDICAL HISTORY: 1. Hypertension, longstanding. 2. History of renal failure. 3. Diabetes. 4. Hypercholesterolemia. MEDICATIONS: Prior to admission, 1. Bisoprolol. 2. Rosuvastatin. 3. Gabapentin. 4. Januvia. 5. Nexium 6. Aspirin, but she says she does not take it routinely. ALLERGIES: HYDROCODONE. SOCIAL HISTORY: Unremarkable. REVIEW OF SYSTEMS: Constitutional: No significant weight gain or loss. Vision: No changes. Heari ng: No changes. Pulmonary: No cough or wheezing. Cardiac: As outlined above. Gastrointestinal: No nausea, vomiting, diarrhea. Skin: No rashes. Neurologic: No unilateral weakness or numbness. Psychiatric: No unusual depression or anxiety. Patient does complain of calf pain with exertion. PHYSICAL EXAMINATION: GENERAL: This is delightful 52-year-old woman in no distress. She is resting comfortably now. VITAL SIGNS: Her blood pressure earlier was 120/60, pulse 70. EYES: Sclerae nonicteric. Mouth and mucous membranes moist. NECK: Supple, no lymphadenopathy. LUNGS: Clear, no wheezing, rales or rhonchi. CARDIOVASCULAR: Normal S1, normal S2. There is no murmur, rub, or gallop. ABDOMEN: Soft, nontender, no hepatosplenomegaly. EXTREMITIES: Warm, dry. No clubbing or cyanosis. There is no edema. Peripheral pulses, I do feel dorsalis pedis and posterior tibial pulses bilaterally. PERTINENT LABORATORY AND X-RAY FINDINGS: Her creatinine 5.7. Cardiac enzymes were negative. EKG di d not show acute changes. ASSESSMENT: 1. Chest pain and pressure typical of angina. 2. End-stage renal disease. 3. The patient ultimately hopes to get a renal transplantation. PLAN: 1. Aspirin. 2. Recommend proceeding to cardiac catheterization. Discussed risks of stroke, heart attack, iodine allergy, loss of blood supply to the leg or kidney, stent thrombosis or restenosis. Dr. Champagne wi ll see the patient tomorrow morning.
[2017-11-07 05:01] LABS: #Basophils 0.1 thou/uL (0.0-0.2); #Eosinphils 0.3 thou/uL (0.0-0.7); #Lymphocytes 2.4 thou/uL (1.20-3.40); #Monocytes 0.7 thou/uL (0.11-0.59); #Neutrophils 5.3 thou/uL (1.40-6.50); %Basophils 1.1 % (0.0-1.0); %Eosinophils 3.4 % (0.0-10.0); %Lymphocytes 27.5 % (21.0-51.0); %Monocytes 8.3 % (0.0-10.0); %Neutrophils 59.8 % (42.0-75.0); Hemoglobin 12.2 g/dL (12.0-16.0); Mean Corpuscular HGB CONC 33.2 g/dL (32.0-36.0); Mean Corpuscular Hemoglobin 30.4 pg (27.0-31.0); Mean Corpuscular Volume 91.4 fL (78.0-98.0); Mean Platelet Volume 9.9 fL (7.4-10.4); Platelet Count 152 thou/uL (130-400); RBC Distribution Width 14.8 % (11.5-14.5); Red Blood Cell (RBC) Count 4.02 mill/uL (4.20-5.40); White Blood Cell (WBC) Count 8.8 thou/uL (4.8-10.8)
[2017-11-07 05:14] LABS: Anion Gap 16 mmol/L (10-20); BUN (Urea Nitrogen) 38 mg/dL (9.8-20.1); Calc. Creatinine Clearance 16 mL/min (70-130); Calcium 8.9 mg/dL (7.8-10.44); Carbon Dioxide 23 mmol/L (22-29); Chloride 102 mmol/L (98-107); Estimated GFR-MDRD 9; Glucose 95 mg/dL (70-105); Potassium 3.4 mmol/L (3.5-5.1); Sodium 138 mmol/L (136-145)
--- NOTE | 2017-11-07 05:26 | PDOC.FM ---
- Subjective Subjective: Pt feels well this AM, felt some intermittent cp last night at rest but has since resolved. No SOB no n/v , no jaw pain, no diaphoresis. Pt feels ready for Cath today - Objective Vital Signs & Weight: Vital Signs (12 hours) Temp Pulse Resp BP BP BP Pulse Ox 11/07/17 03:40 97.9 F 71 16 121/57 L 96 11/07/17 00:02 98.2 F 65 18 139/71 95 11/06/17 20:10 98.3 F 74 18 147/67 H 97 Weight Weight 89.584 kg I&O: 11/05/17 11/06/17 11/07/17 06:59 06:59 06:59 Intake Total 250 Balance 250 Result Diagrams: 11/07/17 04:31 11/07/17 04:31 <Jonathon Giang - Last Filed: 11/07/17 08:43> - Objective Vital Signs & Weight: Weight Weight 89.584 kg I&O: 11/07/17 11/08/17 11/09/17 06:59 06:59 06:59 Intake Total 650 Output Total 1500 Balance 650 -1500 Result Diagrams: 11/07/17 04:31 11/07/17 04:31 <Jennifer Mcfarlane - Last Filed: 11/08/17 16:36> Phys Exam - Physical Examination Constitutional: NAD HEENT: moist MMs, sclera anicteric Respiratory: no wheezing, clear to auscultation bilateral Cardiovascular: RRR, no significant murmur Gastrointestinal: soft Musculoskeletal: no edema Neurological: moves all 4 limbs Psychiatric: normal affect Skin: no rash, normal turgor <Jonathon Giang - Last Filed: 11/07/17 08:43> Dx/Plan (1) Chest pain in adult Code(s): R07.9 - CHEST PAIN, UNSPECIFIED Status: Acute (2) Diabetes Code(s): E11.9 - TYPE 2 DIABETES MELLITUS WITHOUT COMPLICATIONS Status: Acute (3) HLD (hyperlipidemia) Code(s): E78.5 - HYPERLIPIDEMIA, UNSPECIFIED Status: Chronic (4) HTN (hypertension) Code(s): I10 - ESSENTIAL (PRIMARY) HYPERTENSION Status: Chronic Qualifiers: Hypertension type: renovascular hypertension Qualified Code(s): I15.0 - Renovascular hypertension - Plan Plan: 52 yr old female with typical chest pain Stable angina A-trop negative x 3, EKG no st elevation or acute changes, EF 46% in 07/2017. s/ p 325 mg ASA in ER and nitro patch P- consulted cardiology, Dr. Puri, appreciate recs - plan for Cath today per Khushi. - check TSH and FLP if not recently in clinic records HLD -home meds ESRD on HD A- does not appear fluid overloaded, had dialysis yesterday P- notify Dr. Kong -resume normal dialysis schedule DM II -cont [facility] [place] [facility] -SSI -last A1C in hospital (05/2017) is 6.3 HTN -home meds GERD -reports home nexium use -ppx famotidine <Jonathon Giang - Last Filed: 11/07/17 08:43> Attending Addendum - Attending Addendum Date/Time: 11/07/17 9709 I personally evaluated the patient and discussed the management with Dr. Giang. I agree with the History, Examination, Assessment and Plan documented above with any addition or exceptions noted below. The patient is doing well. Cath was negative. Will d/c after dialysis. <Jennifer Mcfarlane - Last Filed: 11/08/17 16:36>
[2017-11-07] MEDS ORDERED: Sodium Chloride 0.9% 1,000 ML IV SCH (06:30)
[2017-11-07] MEDS ORDERED: Diazepam 5 MG TAB PO SCH (07:30)
[2017-11-07 07:31] VITALS: TEMP 97.8
[2017-11-07] MEDS: Famotidine/PF 20 mg/2ml Vial SLOW IVP SCH (07:56)
[2017-11-07] MEDS ORDERED: Midazolam HCl 2 mg/2 ml Vial ONE (08:24)
[2017-11-07 08:48] LABS: HBSAg Index 0.17 S/CO (0-0.99); Hep B Surf Ag Non-Reactive S/CO (NonReactive)
[2017-11-07] MEDS ORDERED: Bisoprolol Fumarate/HCTZ 10 mg/6.25 mg Tablet PO SCH (09:00)
[2017-11-07] MEDS ORDERED: Rosuvastatin 10 MG TAB PO SCH ×2 (09:00→11:25)
[2017-11-07] MEDS ORDERED: Alogliptin 6.25 MG TAB PO SCH (09:00)
[2017-11-07] MEDS ORDERED: Aspirin 81 mg Enteric Coated Tablet PO SCH (09:00)
[2017-11-07 09:21] VITALS: BP 124/70
[2017-11-07 09:55] LABS: HBSAB Concentration 35.41 mIU/mL; Hep B Surf AB Reactive (NonReactive)
[2017-11-07 11:20] LABS: Hep B Surf Ag Non-Reactive S/CO (NonReactive)
[2017-11-07] MEDS ORDERED: Iopamidol 370 76% 100 ML VIAL ONE (13:57)
--- NOTE | 2017-11-07 17:27 | PRG ---
DATE OF SERVICE: 11/07/2017 The patient is a 52-year-old female who was admitted with chest pain. The patient was seen by Cardio logy and has undergone a stress test this morning which was reportedly negative. The patient was the n sent to dialysis and this is where we saw her this morning. The patient is excited to be able to g o home after her dialysis is complete.
[2017-11-07] MEDS ORDERED: Rosuvastatin 20 MG TAB PO SCH (21:00)
[2017-11-08] MEDS ORDERED: Famotidine/PF 20 mg/2ml Vial SLOW IVP SCH (09:00)
--- NOTE | 2017-11-08 20:52 | EKG ---
Test Reason : Blood Pressure : / mmHG Vent. Rate : 074 BPM Atrial Rate : 074 BPM P-R Int : 176 ms QRS Dur : 076 ms QT Int : 378 ms P-R-T Axes : 049 041 200 degrees QTc Int : 419 ms Normal sinus rhythm Possible Left atrial enlargement T wave abnormality, consider inferior ischemia T wave abnormality, consider anterolateral ischemia Abnormal ECG Confirmed by IVY MILES ([id number]), design editor FLOR DÍAZ ([id number]) on 11/08/2017 8:51:43 PM Referred By: Confirmed By:IVY MILES
--- NOTE | 2017-11-09 16:58 | DIS-2 ---
DATE OF ADMISSION: 11/06/2017 DATE OF DISCHARGE: 11/07/2017 RESIDENT: Jonathon Giang MD ADMITTING ATTENDING: Jennifer Mcfarlane M.D. DISCHARGE ATTENDING: Jennifer Mcfarlane MD CONSULTATIONS: Lizzeth Puri M.D. on 11/06/2017, Cardiology. PROCEDURES: 1. On 11/06/2017 Chest x-ray. Impression: No acute intrathoracic abnormality. 2. On 11/06/2017, electrocardiogram. Impression: Possible left atrial enlargement, T-wave abnormal ity, consider inferior ischemia, T-wave abnormality, consider inferolateral ischemia. 3. Cardiac catheterization on 11/07/2017. IMPRESSION: Left ventricular ejection fraction 50% lesion on proximal RCA, 30% stenosis, 5 mm length . PRIMARY DIAGNOSIS: Typical chest pain, likely secondary to musculoskeletal causes. SECONDARY DIAGNOSES: 1. Diabetes mellitus. 2. Hypertension. 3. Hyperlipidemia. 4. End-stage renal disease on dialysis. 5. Heart failure with reduced ejection fraction. DISCHARGE MEDICATIONS: 1. Gabapentin 300 mg p.o. daily p.r.n. 2. Bisoprolol/hydrochlorothiazide 10 mg/6.25 mg one tablet p.o. daily. 3. Sitagliptin (Januvia) 25 mg p.o. daily. 4. Rosuvastatin 10 mg p.o. daily. 5. Esomeprazole magnesium 20 mg p.o. daily. 6. Acetaminophen 650 mg p.o. q.4. p.r.n. 7. Aspirin 81 mg p.o. daily. DISCONTINUED MEDICATIONS: None. HISTORY OF PRESENT ILLNESS AND HOSPITAL COURSE: This is a 52-year-old female with past medical histo ry of congestive heart failure with reduced ejection fraction, hypertension, diabetes, and end-stage renal disease on dialysis, presenting for chest pain. Patient reports that during recent dialysis at rest, patient had sudden onset of crushing, dull chest pain in the substernal region with some radia tion to the right side of the chest wall. The patient reported pain was worsening on exertion and im proved with rest. The patient went to sleep that night and woke up with continued related jaw pain, but patient's chest pain had resolved. Chest pain returned on climbing some stairs and resolved agai n on rest and then patient went to the emergency department. On presentation in the emergency depart ment, EKG showed no acute changes or ST elevations. On admission, troponins were normal x3 and chest x-ray was normal. Patient reported that she had recently been seen by Cardiology, Dr. Puri and torres myke plans for a cardiac catheterization; however, due to financial situation, had been unable to receiv e catheterization and requests it now. Cardiology was consulted and arrangements were made for a car diac catheterization the following day after admission. The patient was catheterized and tolerated p rocedure well. After the patient was deemed stable and acutely dangerous causes of chest pain were r uled out, the patient was discharged to home. DISPOSITION: Stable. DISCHARGE INSTRUCTIONS: 1. Location: Home. 2. Diet, healthy heart. 3. Activity: As tolerated. 4. Follow up with Dr. Puri in 7 days and with [facility] in 3 days.
== END 2017-11-07 14:00 | disposition home or self-care (01) ==
LOC: ERS 09:52 → 2SW 12:22
PROVIDERS: ADMIT Family Medicine; ATTEND Family Medicine
PROC: B2111ZZ Fluoroscopy of Multiple Coronary Arteries using Low Osmolar Contrast (ICD-10-PCS; principal; 2017-11-07)
PROC: 4A023N7 Measurement of Cardiac Sampling and Pressure, Left Heart, Percutaneous Approach (ICD-10-PCS; 2017-11-07)
DX: I25.110 Atherosclerotic heart disease of native coronary artery with unstable angina pectoris (principal); E11.22 Type 2 diabetes mellitus with diabetic chronic kidney disease; I12.0 Hypertensive chronic kidney disease with stage 5 chronic kidney disease or end stage renal disease; N18.6 End stage renal disease; E78.5 Hyperlipidemia, unspecified; Z88.8 Allergy status to other drugs, medicaments and biological substances; Z79.899 Other long term (current) drug therapy; Z79.82 Long term (current) use of aspirin
CPT/HCPCS: 71045; 80048; 80053; 82553; 84484 ×2; 85025 ×2; 86706; 87340; 93005; 93458; 96374; 96376; 99285; C1769; G0378 ×2; 36415; 90935; 99152; 99153; G0257; J1644; J2250; S0028

== ENCOUNTER 2018-02-20 10:07 | Outpatient (CLI) | payer MEDICARE, MEDICAID ==
--- NOTE | 2018-02-20 14:01 | ULT ---
BILATERAL RENAL ULTRASOUND: Date: 02/20/18 HISTORY: Chronic kidney disease. COMPARISON: 05/15/17. TECHNIQUE: Sagittal and transverse imaging of the kidneys performed. FINDINGS: Right Kidney: Increased cortical echogenicity. Right renal cortical thinning. No hydronephrosis. Rig ht kidney measures 4.3 x 3.5 x 6.9 cm. Left Kidney: Increased cortical echogenicity. No hydronephrosis. There is renal cortical thinning. L eft kidney measures 4.2 x 8.2 x 4.6 cm. Questionable calcification in the left renal cortex. Urinary bladder is not assessed on this exam. IMPRESSION: Markedly limited evaluation. There is increased echogenicity of both kidneys suggesting medical renal disease. Grossly no hydronephrosis. POS: RAD[facility]
== END 2018-02-20 10:08 | disposition home or self-care (01) ==
LOC: ULT 10:07
PROVIDERS: ATTEND Family Medicine
DX: N18.4 Chronic kidney disease, stage 4 (severe) (principal); R10.9 Unspecified abdominal pain; N89.8 Other specified noninflammatory disorders of vagina; R93.421 Abnormal radiologic findings on diagnostic imaging of right kidney; R93.422 Abnormal radiologic findings on diagnostic imaging of left kidney
CPT/HCPCS: 76770

== ENCOUNTER 2018-03-30 13:09 | Emergency (ER) | payer OTHER | END 2018-03-30 14:03 | disposition home or self-care (01) | LOC: SCSER 13:09 | DX: J11.1 Influenza due to unidentified influenza virus with other respiratory manifestations (principal); I25.10 Atherosclerotic heart disease of native coronary artery without angina pectoris; E11.9 Type 2 diabetes mellitus without complications; I12.0 Hypertensive chronic kidney disease with stage 5 chronic kidney disease or end stage renal disease; N18.6 End stage renal disease; Z99.2 Dependence on renal dialysis; Z87.891 Personal history of nicotine dependence; E78.2 Mixed hyperlipidemia; Z79.899 Other long term (current) drug therapy; Z79.82 Long term (current) use of aspirin | CPT/HCPCS: 99283 ==

== ENCOUNTER 2018-07-18 06:41 | Emergency (ER) | payer MEDICARE, MEDICAID ==
[2018-07-18] MEDS ORDERED: Ondansetron ODT 4 MG TAB ONE (07:19)
[2018-07-18 07:44] LABS: #Basophils 0.1 thou/uL (0.0-0.2); #Eosinphils 0.3 thou/uL (0.0-0.7); #Lymphocytes 2.4 thou/uL (1.20-3.40); #Monocytes 0.9 thou/uL (0.11-0.59); #Neutrophils 8.8 thou/uL (1.40-6.50); %Basophils 0.9 % (0.0-1.0); %Eosinophils 2.1 % (0.0-10.0); %Lymphocytes 19.3 % (21.0-51.0); %Monocytes 6.9 % (0.0-10.0); %Neutrophils 70.8 % (42.0-75.0); Hemoglobin 13.2 g/dL (12.0-16.0); Mean Corpuscular HGB CONC 32.3 g/dL (32.0-36.0); Mean Corpuscular Hemoglobin 29.6 pg (27.0-31.0); Mean Corpuscular Volume 91.4 fL (78.0-98.0); Mean Platelet Volume 10.7 fL (7.4-10.4); Platelet Count 132 thou/uL (130-400); RBC Distribution Width 13.1 % (11.5-14.5); Red Blood Cell (RBC) Count 4.48 mill/uL (4.20-5.40); White Blood Cell (WBC) Count 12.5 thou/uL (4.8-10.8)
--- NOTE | 2018-07-18 07:47 | RAD ---
TWO VIEW CHEST: HISTORY: Cough. FINDINGS: Lungs are clear. No infiltrate. Heart and mediastinum unremarkable. IMPRESSION: No acute finding. POS: OFF
[2018-07-18 07:48] LABS: ALT (SGPT) 27 U/L (8-55); AST (SGOT) 16 U/L (5-34); Alkaline Phosphatase 110 U/L (40-150); Anion Gap 14 mmol/L (10-20); BUN (Urea Nitrogen) 27 mg/dL (9.8-20.1); Bilirubin, Total 0.4 mg/dL (0.2-1.2); Calc. Creatinine Clearance 0 mL/min (70-130); Calcium 9.5 mg/dL (7.8-10.44); Carbon Dioxide 28 mmol/L (22-29); Chloride 100 mmol/L (98-107); Estimated GFR-MDRD 10; Globulin 3.6 g/dL (2.4-3.5); Glucose 163 mg/dL (70-105); Potassium 3.3 mmol/L (3.5-5.1); Protein, Total 7.6 g/dL (6.0-8.3); Sodium 139 mmol/L (136-145)
[2018-07-18] MEDS ORDERED: Potassium Chloride 20 MEQ TAB ONE (08:03)
== END 2018-07-18 08:07 | disposition home or self-care (01) ==
LOC: SCSER 06:41
DX: J20.9 Acute bronchitis, unspecified (principal); Z87.891 Personal history of nicotine dependence
CPT/HCPCS: 71046; 80053; 84484; 85025; 93005; Q0162

== ENCOUNTER 2018-08-27 12:14 | Outpatient (CLI) | payer MEDICARE, MEDICAID ==
--- NOTE | 2018-08-27 13:35 | RAD ---
ABDOMEN 2 VIEWS: HISTORY: Mechanical complication of intraperitoneal dialysis catheter placement 08/04/2018. FINDINGS/IMPRESSION: No free air is noted. The bowel gas pattern is unremarkable. A dialysis catheter is present. There are degenerative changes in the spine. POS: OFF
== END 2018-08-27 12:15 | disposition home or self-care (01) ==
LOC: BICRAD 12:14
PROVIDERS: ATTEND Internal Medicine Nephrology
DX: T85.691A Other mechanical complication of intraperitoneal dialysis catheter, initial encounter (principal); M47.819 Spondylosis without myelopathy or radiculopathy, site unspecified
CPT/HCPCS: 74019

== ENCOUNTER 2018-11-29 09:04 | Emergency (ER) | payer MEDICARE, MEDICAID ==
[2018-11-29] MEDS ORDERED: Ondansetron ODT 8 MG TAB ONE (09:29)
== END 2018-11-29 09:43 | disposition home or self-care (01) ==
LOC: SCSER 09:04
DX: R11.2 Nausea with vomiting, unspecified (principal); E11.22 Type 2 diabetes mellitus with diabetic chronic kidney disease; E78.5 Hyperlipidemia, unspecified; E78.2 Mixed hyperlipidemia; I10 Essential (primary) hypertension; N18.6 End stage renal disease; Z99.2 Dependence on renal dialysis; Z87.891 Personal history of nicotine dependence
CPT/HCPCS: 36416; 99284

== ENCOUNTER 2020-06-13 10:52 | Outpatient (CLI) | payer MEDICARE, MEDICAID ==
[2020-06-13 20:03] LABS: SARS-CoV-2 PCR by NAA Not Detected (NotDetected)
== END 2020-06-13 10:53 | disposition home or self-care (01) ==
LOC: LABBT 10:52
PROVIDERS: ATTEND Internal Medicine Gastroenterology
DX: Z01.812 Encounter for preprocedural laboratory examination (principal); N18.6 End stage renal disease; J98.4 Other disorders of lung; Z20.822 Contact with and (suspected) exposure to COVID-19
CPT/HCPCS: U0003; U0005; 87635

== ENCOUNTER 2020-06-16 08:41 | Day surgery (SDC) | payer MEDICARE, MEDICAID ==
[2020-06-15 09:54] VITALS: BMI 28.1
[2020-06-16] MEDS ORDERED: PROPOFOL 200 MG/20 ML VIAL ONE (11:11)
[2020-06-16] MEDS ORDERED: Lidocaine 1% PF 5 ML VIAL ONE (11:11)
[2020-06-16] MEDS ORDERED: Fentanyl 100 MCG/2 ML VIAL ONE (12:18)
== END 2020-06-16 15:10 | disposition home or self-care (01) ==
LOC: SDC 08:41
PROVIDERS: ATTEND Internal Medicine Gastroenterology
PROC: 0DBK8ZZ Excision of Ascending Colon, Via Natural or Artificial Opening Endoscopic (ICD-10-PCS; principal; 2020-06-16)
PROC: 0DBL8ZZ Excision of Transverse Colon, Via Natural or Artificial Opening Endoscopic (ICD-10-PCS; 2020-06-16)
PROC: 0DBM8ZZ Excision of Descending Colon, Via Natural or Artificial Opening Endoscopic (ICD-10-PCS; 2020-06-16)
DX: Z12.11 Encounter for screening for malignant neoplasm of colon (principal); D12.2 Benign neoplasm of ascending colon; D12.3 Benign neoplasm of transverse colon; D12.4 Benign neoplasm of descending colon; K21.9 Gastro-esophageal reflux disease without esophagitis; I12.0 Hypertensive chronic kidney disease with stage 5 chronic kidney disease or end stage renal disease; E11.22 Type 2 diabetes mellitus with diabetic chronic kidney disease; N18.6 End stage renal disease; J98.4 Other disorders of lung; E78.00 Pure hypercholesterolemia, unspecified; Z86.010 Personal history of colon polyps; Z88.5 Allergy status to narcotic agent; Z79.899 Other long term (current) drug therapy; Z87.891 Personal history of nicotine dependence
CPT/HCPCS: 88305; J2704; J3010

== ENCOUNTER 2021-02-27 16:04 | Outpatient (CLI) | payer MEDICARE, MEDICAID | END 2021-02-27 16:05 | disposition home or self-care (01) | LOC: BICRAD 16:04 | PROVIDERS: ATTEND Family Medicine | DX: J18.9 Pneumonia, unspecified organism (principal); J98.4 Other disorders of lung | CPT/HCPCS: 71046 ==

== ENCOUNTER 2022-02-12 07:24 | Day surgery (SDC) | payer MEDICARE, MEDICAID ==
[2022-02-11 11:02] VITALS: BMI 26.9
[2022-02-12] MEDS ORDERED: Ketamine 50 MG/ML (10ML VIAL) ONE (10:28)
[2022-02-12] MEDS ORDERED: PROPOFOL 200 MG/20 ML VIAL ONE (10:38)
== END 2022-02-12 12:48 | disposition home or self-care (01) ==
LOC: SDC 07:24
PROVIDERS: ATTEND Internal Medicine Gastroenterology
PROC: 0DBN8ZX Excision of Sigmoid Colon, Via Natural or Artificial Opening Endoscopic, Diagnostic (ICD-10-PCS; principal; 2022-02-12)
DX: D12.5 Benign neoplasm of sigmoid colon (principal); K63.89 Other specified diseases of intestine; K64.8 Other hemorrhoids; I25.10 Atherosclerotic heart disease of native coronary artery without angina pectoris; K21.9 Gastro-esophageal reflux disease without esophagitis; J96.20 Acute and chronic respiratory failure, unspecified whether with hypoxia or hypercapnia; I12.9 Hypertensive chronic kidney disease with stage 1 through stage 4 chronic kidney disease, or unspecified chronic kidney disease; E11.22 Type 2 diabetes mellitus with diabetic chronic kidney disease; N18.9 Chronic kidney disease, unspecified; E78.2 Mixed hyperlipidemia; E11.42 Type 2 diabetes mellitus with diabetic polyneuropathy; G47.00 Insomnia, unspecified; I47.1 Supraventricular tachycardia; Z86.010 Personal history of colon polyps; Z87.891 Personal history of nicotine dependence; Z79.82 Long term (current) use of aspirin; Z79.899 Other long term (current) drug therapy; Z88.5 Allergy status to narcotic agent; Z99.81 Dependence on supplemental oxygen
CPT/HCPCS: 88305